=== PATIENT | male | born 1945 | race Caucasian/White ===

== ENCOUNTER → 2017-01-07 | Outpatient (CLI) | payer BC ==
[~2017-01-07] MED LIST: ASPI81TA28 PO; ENOX30IN SQ; IBUP-1277 PO; LACTTAB7 PO; LORA1TAB13 PO; OXYC1TAB3 PO; PSYLPOW38 PO; WARF5TAB90 PO; [UNRECOGNIZED DRUG - OTHER] PO
--- NOTE | 2017-01-07 09:09 | DIAGNOSTIC IMAGING REPORT ---
RIGHT WRIST 4 VIEWS HISTORY: RIGHT WRIST PAIN Right COMPARISON: None. FINDINGS: No acute fracture or dislocation. Mild vascular calcifications. 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 Mild diffuse soft tissue swelling. Small dorsal well-corticated ossific density consistent with an old triquetral fracture. IMPRESSION: 1. No acute fracture or dislocation. 2. Mild soft tissue swelling. 3. 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 Electronically signed by: Saul García M.D. 01/07/2017 9:08 AM Dictated Date/Time: 01/07/2017 9:06 AM
== END | disposition home or self-care (01) ==
LOC: C.RAD1850 08:54
PROVIDERS: ATTEND Family Medicine
DX: M25.531 Pain in right wrist (principal); M77.11 Lateral epicondylitis, right elbow; R53.83 Other fatigue; M19.031 Primary osteoarthritis, right wrist

== ENCOUNTER → 2017-03-11 | Outpatient (CLI) | payer BC ==
[2017-03-11 17:59] LABS: BASO % 0.2 %; BASO ABS # 0.01 K/uL (0-0.2); COMPLETE YES; EOS % 3.1 %; HEMATOCRIT 50.1 % (42-52); IG% 0.2 %; LYMPH ABS # 1.99 K/uL (1.2-3.4); MEAN CELL VOLUME 91.8 fL (80-100); MEAN CORPUSCULAR HEMOGLOBIN 29.5 pg (25-34); MEAN CORPUSCULAR HGB CONC 32.1 g/dl (32-36); MEAN PLATELET VOLUME 11.5 fL (7.4-10.4); MONO % 9.9 %; NEUT % 48.6 %; PLATELET COUNT 255 K/uL (130-400); RED BLOOD COUNT 5.46 M/uL (4.7-6.1); WHITE BLOOD COUNT 5.24 K/uL (4.8-10.8)
[2017-03-11 18:07] LABS: URINE APPEARANCE CLEAR (CLEAR); URINE BILIRUBIN NEG (NEG); URINE COLOR YELLOW; URINE NITRITE NEG (NEG); URINE SPECIFIC GRAVITY 1.021 (1.000-1.030); UROBILINOGEN NEG (NEG)
[2017-03-11 18:09] LABS: MANUAL MICROSCOPIC REQUIRED? NO; REVIEW REQ? NO
[2017-03-11 18:25] LABS: ALT/SGPT 27 U/L (12-78); AST/SGOT 21 U/L (15-37); BLOOD UREA NITROGEN 15 mg/dl (7-18); BUN/CREATININE RATIO 15.4 (10-20); CARBON DIOXIDE 27 mmol/L (21-32); CHLORIDE 106 mmol/L (98-107); CHOLESTEROL 224 mg/dl (0-200); GLUCOSE 80 mg/dl (70-99); POTASSIUM 4.8 mmol/L (3.5-5.1); SODIUM 142 mmol/L (136-145)
[2017-03-11 18:30] LABS: ALB/GLOB RATIO 1.1 (0.9-2); ALKALINE PHOSPHATASE 55 U/L (45-117); CHOLESTEROL/HDL RATIO 2.9; HDL CHOLESTEROL 78 mg/dl; LDL CHOLESTEROL CALCULATED 128 mg/dl; TRIGLYCERIDES 92 mg/dl (0-150); VERY LOW DENSITY LIPOPROT CALC 18 mg/dl
--- NOTE | 2017-03-12 13:25 | CODING QUERY NO DIAGNOSIS ---
TREATMENT RENDERED WITHOUT A DIAGNOSIS To promote full compliance with coding requirements relating to patient care, physician participation is requested in all cases of surgical coder uncertainty. Please assist us with providing a diagnosis/symptom for the test(s) below: A diagnosis/symptom was not documented on your Order. A valid diagnosis/symptom is required to bill all insurances. Please remember that we are unable to code a diagnosis of rule out, probable, possible, questionable, or suspected. Tests that require a diagnosis: DOS 03/11 * CBC DIAGNOSIS: * CMP DIAGNOSIS: * PSA DIAGNOSIS: Provider Signature: Date: Thank you Basilia Sainz Health Information Management Once completed, please kindly fax back to [phone] For questions please call [phone]
== END | disposition home or self-care (01) ==
LOC: C.LABSPEC 17:08
PROVIDERS: ATTEND Nurse Practitioner Family
DX: Z01.89 Encounter for other specified special examinations (principal)

== ENCOUNTER → 2017-03-19 | Outpatient (CLI) | payer BC ==
--- NOTE | 2017-03-19 14:26 | ECHOCARDIOGRAM REPORT ---
*NOTICE TO RECEIVING DEMOCRAT AGENCY This information is strictly Confidential and protected under [place] law. [place] law prohibits you from making any further disclosure of this information unless further disclosure is expressly permitted by the written consent of the person to whom it pertains or is authorized by law. A general authorization for the release of medical or other information is not sufficient for this purpose. Hospital accepts no responsibility if the information is made available to any other person, INCLUDING THE PATIENT. Interpretation Summary * Conclusions -- * 1. Normal left ventricular size and systolic function. EF 55-60%. No regional wall motion abnormalities. No left ventricular hypertrophy. * 2. Mild mitral regurgitation. * 3. Normal estimated right ventricular systolic pressure; RVSP 29 mmHg. * 4. Compared to prior study on 07/30/2013, atrial fibrillation has replaced sinus rhythm. Procedure Details * A complete two-dimensional transthoracic echocardiogram was performed (2D, M-mode, Doppler and color flow Doppler). Left Ventricle * The left ventricle is normal in size. * There is normal left ventricular wall thickness. * Ejection Fraction = 55-60%. * Left ventricular systolic function is normal. * The left ventricular wall motion is normal. Right Ventricle * The right ventricle is normal in size and function. * The right ventricular systolic function is normal as assessed by tricuspid annular plane systolic excursion (TAPSE) (normal >1.5 cm). Atria * The left atrial size is normal. * Right atrial size is normal. * There is no evidence of atrial septal defect, but resolution does not allow assessment for a patent foramen ovale. Mitral Valve * The mitral valve leaflets appear normal. There is no evidence of stenosis, fluttering, or prolapse. * There is mild mitral regurgitation. Tricuspid Valve * The tricuspid valve is not well visualized, but is grossly normal. * There is no tricuspid stenosis. * There is trace tricuspid regurgitation. Aortic Valve * The aortic valve is normal in structure and function. * The aortic valve is trileaflet. * No hemodynamically significant valvular aortic stenosis. * No aortic regurgitation is present. Pulmonic Valve * The pulmonary valve is inadequately visualized, but the Doppler data is adequate for interpretation. * There is no pulmonic valvular stenosis. * There is no significant pulmonary regurgitation. Great Vessels * The aortic root is normal size. Pericardium/Pleural * There is no pericardial effusion. Great Vessels * Normal inferior vena cava size and collapsability with sniff indicates a normal right atrial pressure of 3 mmHg MMode 2D Measurements and Calculations IVSd 1.1 cm IVSs 1.6 cm LVIDd 4.3 cm LVIDs 2.8 cm LVPWd 0.87 cm LVPWs 1.4 cm IVS/LVPW 1.3 FS 33.0 % EDV(Teich) 80.9 ml ESV(Teich) 30.8 ml EF(Teich) 61.9 % EDV(cubed) 76.8 ml ESV(cubed) 23.1 ml EF(cubed) 69.9 % % IVS thick 44.6 % % LVPW thick 57.5 % LV mass(C)d 139.9 grams LV mass(C)dI 84.4 grams/m\S\2 LV mass(C)s 148.2 grams LV mass(C)sI 89.4 grams/m\S\2 SV(Teich) 50.0 ml SI(Teich) 30.2 ml/m\S\2 SV(cubed) 53.7 ml SI(cubed) 32.4 ml/m\S\2 Ao root diam 3.1 cm Ao root area 7.7 cm\S\2 LA dimension 3.9 cm LA/Ao 1.2 LVAd ap4 30.0 cm\S\2 LVLd ap4 7.2 cm EDV(MOD-sp4) 101.3 ml EDV(sp4-el) 106.5 ml LVAs ap4 18.7 cm\S\2 LVLs ap4 6.3 cm ESV(MOD-sp4) 47.5 ml ESV(sp4-el) 47.2 ml EF(MOD-sp4) 53.1 % EF(sp4-el) 55.7 % SV(MOD-sp4) 53.8 ml SI(MOD-sp4) 32.5 ml/m\S\2 SV(sp4-el) 59.3 ml SI(sp4-el) 35.8 ml/m\S\2 Doppler Measurements and Calculations MV E max dana 112.4 cm/sec MV dec time 0.17 sec Ao V2 max 138.5 cm/sec Ao max PG 7.7 mmHg Ao max PG (full) 5.0 mmHg LV V1 max PG 2.7 mmHg LV V1 max 81.7 cm/sec TV E max dana 60.9 cm/sec TR max dana 253.3 cm/sec RVSP(TR) 28.7 mmHg RAP systole 3.0 mmHg
== END | disposition home or self-care (01) ==
LOC: C.CPL 12:51
PROVIDERS: ATTEND Family Medicine
DX: I48.91 Unspecified atrial fibrillation (principal)

== ENCOUNTER 2017-07-02 23:00 | Emergency (ER) | payer BC ==
[~2017-07-02] VITALS: Ht 167.6 cm; Wt 58.0 kg
[~2017-07-02 23:00] MED LIST changes: -WARF5TAB90 PO
[2017-07-02 23:03] VITALS: TEMP 36.4; Ht 167.6 cm; Wt 58.0 kg
[2017-07-02] MEDS ORDERED: SODIUM CHLORIDE 0.9% 1000ML 1,000 ML IV STA (23:25)
[2017-07-02] MEDS ORDERED: METOPROLOL TARTRATE 1 MG/ML VIAL IV STA (23:25)
--- NOTE | 2017-07-02 23:28 | EMERGENCY ROOM VISIT NOTE ---
History Report prepared by Juarez: Kaiden Rosas Under the Supervision of: Dr. Glenn Smith M.D. First contact with patient: 23:13 Chief Complaint: SYNCOPE (NEAR SYNCOPE) Stated Complaint: NEAR SYNCOPE Nursing Triage Summary: Pt was coming from bathroom and started to feel dizzy. Pt said he slumped over in the chair. Per patient was unresponsive for a couple of seconds. Pt remembers being diaphoretic. History of Present Illness The patient is a 71 year old male who presents to the Emergency Room with complaints of a resolved syncopal episode that occurred prior to arrival. The patient states that he went to get up from the couch and felt dizzy. He states that he went to the bathroom to urinate and the dizziness worsened. The patient states that he went downstairs and sat in the chair and experienced a syncopal episode. The patient is accompanied by his who states that she found him slumping in his chair and staring. She states that he was unresponsive for 2-3 minutes, staring, and experiencing diaphoresis. The patient states that he does not remember the incident. He admits that he was experiencing diaphoresis and shakiness until the ambulance arrived. The patient states that he feels better after the incident. He admits that he has experienced this in the past due to his history of atrial fibrillation. The patient states that he follows up with Dr. Cueto, his PCP, for his Atrial fibrillation. He states that he needed to be cleared for hip surgery in March. The patient states that he "must have come out of Atrial fibrillation since I had hip surgery". He admits that he he took Lovenox for a month after his surgery. The patient states that he currently takes baby aspirin every day. He denies fever, nausea, vomiting, abdominal pain , chest pain, and SOB. Source of History: patient, spouse/significant other Onset: prior to arrival Position: other (global) Quality: other (unresponsive) Timing: resolved Associated Symptoms: No fevers, No chest pain, No SOB, No nausea, No vomiting, No abdominal pain Review of Systems See HPI for pertinent positives & negatives. A total of 10 systems reviewed and were otherwise negative. Past Medical & Surgical Medical Problems: (1) Deviated nasal septum (2) Dislocation of shoulder joint Family History Patient reports no known family medical history. Social History Smoking Status: Never Smoker Alcohol Use: occasionally Marital Status: Housing Status: lives with significant other Occupation Status: employed Current/Historical Medications Scheduled Aspirin (Aspirin Ec), 81 MG PO DAILY Lactobacillus (Acidophilus), 1 TAB PO DAILY Psyllium Husk (Bulk) (Psyllium Husk), 1 CAPSULE PO DAILY Warfarin Sodium (Coumadin), 5 MG PO 4XWK Warfarin Sodium (Coumadin), 7.5 MG PO 3XWK Allergies Coded Allergies: No Known Allergies (Verified , 07/02/17) Physical Exam Vital Signs Date Time Temp Pulse Resp B/P (MAP) Pulse Ox O2 Delivery O2 Flow Rate FiO2 07/03/17 00:38 90 16 127/86 99 07/03/17 00:04 127/84 07/03/17 00:00 93 16 131/94 96 Room Air 07/02/17 23:55 122/87 07/02/17 23:45 100 20 97 Room Air 07/02/17 23:42 117 123/87 07/02/17 23:40 123/87 07/02/17 23:30 116 16 97 07/02/17 23:25 Room Air 07/02/17 23:15 100 16 97 07/02/17 23:09 130 07/02/17 23:07 150/84 07/02/17 23:05 110 18 139/92 96 Room Air 126 153/112 111 150/84 07/02/17 23:03 36.4 105 18 150/84 96 Room Air Physical Exam GENERAL: Patient is a healthy-appearing well-nourished 71 year old male. HEAD: Normocephalic atraumatic EYES: Ocular movements intact pupils equal and react to light OROPHARYNX mucous membranes are moist no exudates present no erythema or edema present NECK: Supple no nuchal rigidity CHEST: Good equal expansion LUNGS: Clear and equal to auscultation CARDIAC: Normal S1 and S2 ABDOMEN: Soft nontender no guarding BACK: No CVA tenderness EXTREMITIES: No pain upon palpation normal muscle strength in all groups no clubbing cyanosis or edema NEURO: Patient is following commands and answering questions appropriately. Alert and oriented x3 Cranial Nerves 2-12 grossly intact Medical Decision & Procedures ER Provider Diagnostic Interpretation: X-ray results as stated below per interpretation by me: CHEST X-RAY: Shows no congestive pneumonia or pneumothorax. Laboratory Results 07/02/17 22:47 Red Blood Count 5.16, Mean Corpuscular Volume 89.3, Mean Corpuscular Hemoglobin 30.0, Mean Corpuscular Hemoglobin Concent 33.6, Mean Platelet Volume 11.0, Neutrophils (%) (Auto) 42.0, Lymphocytes (%) (Auto) 42.5, Monocytes (%) (Auto) 11.6, Eosinophils (%) (Auto) 3.4, Basophils (%) (Auto) 0.3, Neutrophils # (Auto ) 2.69, Lymphocytes # (Auto) 2.72, Monocytes # (Auto) 0.74, Eosinophils # (Auto ) 0.22, Basophils # (Auto) 0.02 07/02/17 22:47 Test 07/02/17 22:47 White Blood Count 6.40 K/uL (4.8-10.8) Red Blood Count 5.16 M/uL (4.7-6.1) Hemoglobin 15.5 g/dL (14.0-18.0) Hematocrit 46.1 % (42-52) Mean Corpuscular Volume 89.3 fL (80-100) Mean Corpuscular Hemoglobin 30.0 pg (25-34) Mean Corpuscular Hemoglobin Concent 33.6 g/dl (32-36) Platelet Count 231 K/uL (130-400) Mean Platelet Volume 11.0 fL (7.4-10.4) Neutrophils (%) (Auto) 42.0 % Lymphocytes (%) (Auto) 42.5 % Monocytes (%) (Auto) 11.6 % Eosinophils (%) (Auto) 3.4 % Basophils (%) (Auto) 0.3 % Neutrophils # (Auto) 2.69 K/uL (1.4-6.5) Lymphocytes # (Auto) 2.72 K/uL (1.2-3.4) Monocytes # (Auto) 0.74 K/uL (0.11-0.59) Eosinophils # (Auto) 0.22 K/uL (0-0.5) Basophils # (Auto) 0.02 K/uL (0-0.2) RDW Standard Deviation 42.2 fL (36.4-46.3) RDW Coefficient of Variation 12.9 % (11.5-14.5) Immature Granulocyte % (Auto) 0.2 % Immature Granulocyte # (Auto) 0.01 K/uL (0.00-0.02) Prothrombin Time 27.2 SECONDS (9.0-12.0) Prothromb Time International Ratio 2.4 (0.9-1.1) Anion Gap 8.0 mmol/L (3-11) Est Creatinine Clear Calc Drug Dose 55.6 ml/min Estimated GFR () 87.4 Estimated GFR (Non- 75.4 BUN/Creatinine Ratio 17.9 (10-20) Calcium Level 8.7 mg/dl (8.5-10.1) Total Bilirubin 0.3 mg/dl (0.2-1) Direct Bilirubin < 0.1 mg/dl (0-0.2) Aspartate Amino Transf (AST/SGOT) 20 U/L (15-37) Alanine Aminotransferase (ALT/SGPT) 26 U/L (12-78) Alkaline Phosphatase 57 U/L (45-117) Total Creatine Kinase 147 U/L (39-308) Creatine Kinase MB 1.1 ng/ml (0.5-3.6) Creatine Kinase MB Ratio 0.7 (0-3.0) Troponin I < 0.015 ng/ml (0-0.045) Total Protein 7.9 gm/dl (6.4-8.2) Albumin 3.8 gm/dl (3.4-5.0) Lipase 155 U/L (73-393) Labs reviewed by ED physician. Medications Administered Medications (Trade) Dose Ordered Sig/Eve Route Start Time Stop Time Status Last Admin Dose Admin Metoprolol Tartrate (Lopressor Iv) 15 mg NOW STAT IV 07/02/17 23:25 07/02/17 23:27 DC 07/02/17 23:42 15 MG Sodium Chloride 1,000 ml @ 999 mls/hr Q1H1M STAT IV 07/02/17 23:25 07/03/17 00:25 DC 07/02/17 23:42 999 MLS/HR ECG Indication: syncope Rate (beats per minute): 106 Rhythm: atrial fibrillation Findings: no acute ischemic change, other (RVR) ED Course 2314: Past medical records reviewed. The patient was evaluated in room B07. A complete history and physical examination was performed. 2325: Ordered Sodium Chloride 1000 ml @ 999 mls/hr IV, Lopressor IV 15 mg IV. Medical Decision The differential diagnosis includes etiologies such as cardiac ischemia, aortic dissection, pulmonary embolism, pneumonia, pneumothorax, musculoskeletal, infections, pericarditis, myocarditis, esophageal rupture, gastrointestinal, as well as others were entertained. This is a 71-year-old male who presents emergency department after vasovagal episode after micturating. Upon arrival to emergency department the patient has no complaints and is essentially feeling better. The patient is on Coumadin for atrial fibrillation. I suspect that the patient is normally in atrial fibrillation as he had an echo performed in March when he was in atrial fibrillation. The patient has normal CBC normal renal profile normal liver profile. He was given a normal bit bolus of fluid in the emergency department. the patient was given Lopressor here in the emergency department. As he is rate controlled I feel he is well enough to be discharged home for follow-up with Dr. Carson's office. Patient was in agreement with treatment plan. Medication Reconcilliation Current Medication List: was personally reviewed by me Blood Pressure Screening Patient's blood pressure: Elevated blood pressure Blood pressure disposition: Elevated BP felt to be situational Impression Primary Impression: Vasovagal syncope Scribe Attestation The scribe's documentation has been prepared under my direction and personally reviewed by me in its entirety. I confirm that the note above accurately reflects all work, treatment, procedures, and medical decision making performed by me. Departure Information Dispostion Home / Self-Care Referrals Rashel Cueto M.D. (PCP) Patient Instructions My [facility]
[2017-07-02 23:43] LABS: ALT/SGPT 26 U/L (12-78); AST/SGOT 20 U/L (15-37); BLOOD UREA NITROGEN 18 mg/dl (7-18); BUN/CREATININE RATIO 17.9 (10-20); CALCIUM 8.7 mg/dl (8.5-10.1); CARBON DIOXIDE 28 mmol/L (21-32); CHLORIDE 106 mmol/L (98-107); GLUCOSE 79 mg/dl (70-99); POTASSIUM 3.8 mmol/L (3.5-5.1); SODIUM 142 mmol/L (136-145)
[2017-07-02 23:44] LABS: BASO % 0.3 %; BASO ABS # 0.02 K/uL (0-0.2); COMPLETE YES; EOS % 3.4 %; HEMATOCRIT 46.1 % (42-52); IG% 0.2 %; LYMPH % 42.5 %; LYMPH ABS # 2.72 K/uL (1.2-3.4); MEAN CELL VOLUME 89.3 fL (80-100); MEAN CORPUSCULAR HGB CONC 33.6 g/dl (32-36); MONO % 11.6 %; PLATELET COUNT 231 K/uL (130-400); RED BLOOD COUNT 5.16 M/uL (4.7-6.1)
[2017-07-02 23:45] LABS: INR 2.4 (0.9-1.1); PROTHROMBIN TIME (PATIENT) 27.2 SECONDS (9.0-12.0)
[2017-07-02 23:48] LABS: ALKALINE PHOSPHATASE 57 U/L (45-117); CKMB/CK RATIO 0.7 (0-3.0)
[2017-07-02] MEDS ORDERED: WARF5TAB90 PO ×2 (23:57)
[2017-07-03 00:38] VITALS: BP 127/86; PULSE 90; O2SAT 99
--- NOTE | 2017-07-03 07:05 | DIAGNOSTIC IMAGING REPORT ---
CHEST ONE VIEW PORTABLE CLINICAL HISTORY: CHEST PAIN dyspnea COMPARISON STUDY: 07/29/2013 FINDINGS: The bones soft tissues and hemidiaphragms are normal. The cardiomediastinal silhouette is normal. The lungs are clear. The pulmonary vasculature is normal. IMPRESSION: Negative chest. The above report was generated using voice recognition software. It may contain grammatical, syntax or spelling errors. Electronically signed by: Nilesh Lacy M.D. 07/03/2017 7:03 AM Dictated Date/Time: 07/03/2017 7:00 AM
== END 2017-07-03 00:39 | disposition home or self-care (01) ==
LOC: EDBD 23:00 → C.EDB 23:03
DX: R55 Syncope and collapse (principal); I48.91 Unspecified atrial fibrillation; Z79.01 Long term (current) use of anticoagulants; Z87.828 Personal history of other (healed) physical injury and trauma; Z79.82 Long term (current) use of aspirin; Z79.899 Other long term (current) drug therapy

== ENCOUNTER 2020-05-17 12:50 | Observation (INO) ==
[2020-05-17] MEDS ORDERED: SODIUM CHLORIDE 0.9% 1000ML 1,000 ML IV ONE ×2 (13:14→14:38)
--- NOTE | 2020-05-17 13:19 | Emergency Department Note ---
Impression & Plan Acute appendicitis, Abdominal pain, Fever, Atrial fibrillation with rapid ventricular response ED Provider Note NAME: BRITTANY CONNELL AGE: 74 SEX: M : 1945 ARRIVES VIA: Walk-In INFORMANT: Patient, ED PROVIDER(S): Rashel Schilling DO CHIEF COMPLAINT: Fever HPI: The patient is a 74-year-old male who presented to the emergency department for an evaluation of fever and altered mental status. Apparently the patient has been experiencing confusion all morning. He also noticed an elevated temperature. The patient also complains of left-sided abdominal pain. He denies having any diarrhea. He has had no nausea or vomiting. He has had no chest pain. He has noticed that his heart rate has been increasing and has a history of atrial fibrillation. He denies having any lower extremity swelling or rash. The patient has not been seen by her primary care physician for the symptoms. ROS: See above HPI for pertinent positives & negatives. A total of 10 systems reviewed and were otherwise negative. PAST MEDICAL HISTORY: See Below PAST SURGICAL HISTORY: See Below FAMILY HISTORY: See Below SOCIAL HISTORY: See Below HOME MEDICATIONS: See Below ALLERGIES: See Below VITALS: See Below PHYSICAL EXAMINATION: GENERAL: Patient is awake alert in no acute distress patient is resting comfortably and showing no signs of anxiety EYES: The conjunctivae are clear. The pupils are round and reactive. EARS, NOSE, MOUTH AND THROAT: The nose is without any evidence of any deformity. Mucous members are dry. NECK: The neck is nontender and supple. RESPIRATORY: Normal respiratory effort is noted there is no evidence of wheezing rhonchi or rales CARDIOVASCULAR: Tachycardic and irregular rhythm was noted to auscultation. There was no definite murmur. GASTROINTESTINAL: The abdomen is mildly distended but soft. There is significant tenderness to palpation in the left lower quadrant. MUSCULOSKELETAL/EXTREMITIES: There is no evidence of gross deformity full range of motion is noted in the hips and shoulders. SKIN: There is no obvious evidence of any rash. Skin was warm and dry. There is pedal edema bilaterally. NEUROLOGIC: Patient is awake and oriented to person place and situation. Strength was symmetric. MEDICAL DECISION MAKING: The patient is a 74-year-old male who presented to the emergency department for an evaluation of abdominal pain and fever. The patient's history and physical exam initially I thought was consistent with acute diverticulitis. The patient was treated with IV fluids in the emergency department. He was reevaluated multiple times. I discussed the patient's laboratory and radiographic studies with him. CT appears to be consistent with acute appendicitis. For this reason I discussed his case with the on-call general surgical group. They will evaluate the patient in the emergency department for further management and disposition. After the patient was evaluated by the general surgeon he was felt to be a good candidate for medical admission given his rapid atrial fibrillation and other comorbidities. The patient also recently took blood thinners this morning for his A. fib. Triage Nursing notes reviewed. Prior medical records reviewed Vital Signs: reviewed and remarkable for fever and tachycardia. Differential diagnosis: Etiologies such as appendicitis, diverticulitis, obstruction, inflammatory bowel disease, renal colic, PUD, biliary pathology, pancreatitis, mesenteric ischemia, aortic pathology, infections, genitourinary, UTI, perforated viscus, as well as others were entertained. ER treatment provided: See below Diagnostics interpreted by me: ECG: EKG was obtained in the emergency department. My interpretation is atrial fibrillation with rapid ventricular response at 164 bpm. There were no PVCs. Diffuse ST depressions were noted. This was compared to a tracing from July 02, 2017. There is an increase in the heart rate as well as ST segment depressions which appear new compared to the previous tracing. Cardiac Monitoring: An order was placed for continuous cardiac monitoring. The monitor shows a rate of 110 with atrial fibrillation rhythm. Laboratory studies: As stated above and show below. Imaging studies: See below Consultation(s): 1445: I discussed this case with Ольга who is oxidation engineer for general surgery. They will evaluate the patient in the emergency department. ED COURSE: Procedures: none Critical Care: None Past Med/Surg History Medical History Deviated nasal septum (Resolved 06/29/13) Dislocation of shoulder joint (Resolved 06/29/13) Hypercholesterolemia Hypertension PAF (paroxysmal atrial fibrillation) Social History Smoking Status: Never smoker Allergies Allergies Allergy/AdvReac Type Severity Reaction Status Date / Time pollen extracts Allergy Mild SNEEZING, Verified 05/17/20 15:17 CONGESTION Home Meds Home Medications Medication Instructions Recorded Confirmed aspirin 81 mg tablet,delayed 81 mg PO QAM 07/25/19 05/17/20 release naproxen 500 mg tablet 500 mg PO QAM tab 02/27/20 05/17/20 Lactobacillus acidophilus 0 mg PO DAILY 05/17/20 05/17/20 metoprolol succinate 12.5 mg PO QAM 05/17/20 05/17/20 psyllium husk 6 g PO QAM 05/17/20 05/17/20 rivaroxaban [Xarelto] 20 mg PO QAM 05/17/20 05/17/20 Results & Data (ED) Vital Signs Vital Signs - 24 hr 05/17/20 12:56 05/17/20 13:11 05/17/20 13:15 Temperature 37.9 C H Temperature Source Oral Pulse Rate 143 H 160 H 194 H Pulse Rate [Apical] Pulse Rate from SpO2 Sensor 147 H 184 H Respiratory Rate 20 22 22 Respiratory Effort / Characteristics Non-Labored Spontaneous Respiratory Depth Normal Blood Pressure 100/60 114/68 Blood Pressure [Left Arm] Blood Pressure Mean 73 72 Blood Pressure Mean [Left Arm] Pulse Oximetry 94 92 95 Oxygen Delivery Method Sepsis Recent Fever Within 48 Hours Yes Sepsis New/Unexplained Change in Mental Status Yes Sepsis Action Taken by Nursing No Action Required 05/17/20 13:21 05/17/20 13:30 05/17/20 13:31 Temperature Temperature Source Pulse Rate 157 H 138 H 147 H Pulse Rate [Apical] 174 H Pulse Rate from SpO2 Sensor 125 H 117 H 120 H Respiratory Rate 23 15 19 Respiratory Effort / Characteristics Respiratory Depth Blood Pressure 101/64 108/76 Blood Pressure [Left Arm] 101/64 Blood Pressure Mean 67 91 Blood Pressure Mean [Left Arm] 76 Pulse Oximetry 95 96 96 Oxygen Delivery Method Room Air Sepsis Recent Fever Within 48 Hours Sepsis New/Unexplained Change in Mental Status Sepsis Action Taken by Nursing 05/17/20 14:00 05/17/20 14:25 05/17/20 14:30 Temperature Temperature Source Pulse Rate 126 H 117 H 122 H Pulse Rate [Apical] Pulse Rate from SpO2 Sensor 126 H 111 H 125 H Respiratory Rate 23 23 24 Respiratory Effort / Characteristics Respiratory Depth Blood Pressure 111/72 110/79 Blood Pressure [Left Arm] Blood Pressure Mean 77 82 Blood Pressure Mean [Left Arm] Pulse Oximetry 95 96 95 Oxygen Delivery Method Sepsis Recent Fever Within 48 Hours Sepsis New/Unexplained Change in Mental Status Sepsis Action Taken by Nursing 05/17/20 14:31 05/17/20 14:45 05/17/20 15:10 Temperature 36.6 C Temperature Source Oral Pulse Rate 115 H 126 H Pulse Rate [Apical] 111 H Pulse Rate from SpO2 Sensor 120 H 124 H Respiratory Rate 22 23 18 Respiratory Effort / Characteristics Respiratory Depth Blood Pressure 130/82 Blood Pressure [Left Arm] 129/93 Blood Pressure Mean 102 Blood Pressure Mean [Left Arm] 105 Pulse Oximetry 94 94 97 Oxygen Delivery Method Room Air Sepsis Recent Fever Within 48 Hours Sepsis New/Unexplained Change in Mental Status Sepsis Action Taken by [facility] Medications Current Medication List: was personally reviewed by me Laboratory Data Result diagrams: 05/17/20 13:20 05/17/20 13:20 Lab Results 05/17/20 05/17/20 05/17/20 Range/Units 13:20 13:20 13:20 WBC 7.96 (4.8-10.8) K/uL RBC 5.13 (4.7-6.1) M/uL Hgb 15.9 (14.0-18.0) g/dL Hct 46.1 (42-52) % MCV 89.9 (80-100) fL MCH 31.0 (25-34) pg MCHC 34.5 (32-36) g/dL RDW Std Deviation 42.0 (36.4-46.3) fL RDW Coeff of Zeus 12.9 (11.5-14.5) % Plt Count 170 (130-400) K/uL MPV 11.3 H (7.4-10.4) fL Immature Gran % (Auto) 0.1 % Neut % (Auto) 91.6 % Lymph % (Auto) 7.3 % Barron % (Auto) 1.0 % Eos % (Auto) 0.0 % Baso % (Auto) 0.0 % Neut # (Auto) 7.29 H (1.4-6.5) K/uL Lymph # (Auto) 0.58 L (1.2-3.4) K/uL Barron # (Auto) 0.08 L (0.11-0.59) K/uL Eos # (Auto) 0.00 (0-0.5) K/uL Baso # (Auto) 0.00 (0-0.2) K/uL Immature Gran # (Auto) 0.01 (0.00-0.02) K/uL PT 15.2 H (9.0-12.0) Seconds INR 1.5 H (0.9-1.1) APTT 33.4 H (21.0-31.0) Seconds PTT Ratio 1.2 Sodium 138 (136-145) mmol/L Potassium 3.7 (3.5-5.1) mmol/L Chloride 107 (98-107) mmol/L Carbon Dioxide 23 (21-32) mmol/L Anion Gap 8.0 (3-11) BUN 16 (7-18) mg/dl Creatinine 1.12 (0.6-1.4) mg/dl Est Cr Clr Drug Dosing Not Reportable Est GFR ( Amer) 74.6 Est GFR (Non-Af Amer) 64.4 BUN/Creatinine Ratio 13.9 (10-20) Glucose 105 H (70-99) mg/dl Lactate (0.4-2.0) mmol/L Calcium 8.8 (8.5-10.1) mg/dl Magnesium 2.1 (1.8-2.4) mg/dl Total Bilirubin 1.5 H (0.2-1) mg/dl AST 14 L (15-37) U/L ALT 19 (12-78) U/L Alkaline Phosphatase 68 (45-117) U/L Troponin I < 0.015 (0-0.045) ng/ml Total Protein 8.1 (6.4-8.2) gm/dl Albumin 3.6 (3.4-5.0) gm/dl Globulin 4.5 H (2.5-4.0) gm/dl Albumin/Globulin Ratio 0.8 L (0.9-2) Procalcitonin (0-0.5) ng/ml Urine Color Urine Appearance (Clear) Urine pH (4.5-7.5) Ur Specific Edgard (1.000-1.030) Urine Protein (Negative) Urine Glucose (UA) (Negative) Urine Ketones (Negative) Urine Blood (Negative) Urine Nitrite (Negative) Urine Bilirubin (Negative) Urine Urobilinogen (Negative) Ur Leukocyte Esterase (Negative) 05/17/20 05/17/20 05/17/20 Range/Units 13:20 14:01 14:45 WBC (4.8-10.8) K/uL RBC (4.7-6.1) M/uL Hgb (14.0-18.0) g/dL Hct (42-52) % MCV (80-100) fL MCH (25-34) pg MCHC (32-36) g/dL RDW Std Deviation (36.4-46.3) fL RDW Coeff of Zeus (11.5-14.5) % Plt Count (130-400) K/uL MPV (7.4-10.4) fL Immature Gran % (Auto) % Neut % (Auto) % Lymph % (Auto) % Barron % (Auto) % Eos % (Auto) % Baso % (Auto) % Neut # (Auto) (1.4-6.5) K/uL Lymph # (Auto) (1.2-3.4) K/uL Barron # (Auto) (0.11-0.59) K/uL Eos # (Auto) (0-0.5) K/uL Baso # (Auto) (0-0.2) K/uL Immature Gran # (Auto) (0.00-0.02) K/uL PT (9.0-12.0) Seconds INR (0.9-1.1) APTT (21.0-31.0) Seconds PTT Ratio Sodium (136-145) mmol/L Potassium (3.5-5.1) mmol/L Chloride (98-107) mmol/L Carbon Dioxide (21-32) mmol/L Anion Gap (3-11) BUN (7-18) mg/dl Creatinine (0.6-1.4) mg/dl Est Cr Clr Drug Dosing Est GFR ( Amer) Est GFR (Non-Af Amer) BUN/Creatinine Ratio (10-20) Glucose (70-99) mg/dl Lactate 2.4 H* (0.4-2.0) mmol/L Calcium (8.5-10.1) mg/dl Magnesium (1.8-2.4) mg/dl Total Bilirubin (0.2-1) mg/dl AST (15-37) U/L ALT (12-78) U/L Alkaline Phosphatase (45-117) U/L Troponin I (0-0.045) ng/ml Total Protein (6.4-8.2) gm/dl Albumin (3.4-5.0) gm/dl Globulin (2.5-4.0) gm/dl Albumin/Globulin Ratio (0.9-2) Procalcitonin 0.34 (0-0.5) ng/ml Urine Color Yellow Urine Appearance Clear (Clear) Urine pH 7.0 (4.5-7.5) Ur Specific Edgard 1.018 (1.000-1.030) Urine Protein Negative (Negative) Urine Glucose (UA) Negative (Negative) Urine Ketones Negative (Negative) Urine Blood Negative (Negative) Urine Nitrite Negative (Negative) Urine Bilirubin Negative (Negative) Urine Urobilinogen Negative (Negative) Ur Leukocyte Esterase Negative (Negative) Administered Medications Discontinued Medications Sodium Chloride (Nss 1000ml) 1,000 mls @ 999 mls/hr IV .Q1H1M ONE Stop: 05/17/20 14:14 Last Infusion: 05/17/20 14:23 Dose: 0 mls/hr Documented by: [id number] Admin: 05/17/20 13:22 Dose: 999 mls/hr Documented by: [id number] Sodium Chloride (Nss 1000ml) 1,000 mls @ 999 mls/hr IV .Q1H1M ONE Stop: 05/17/20 15:38 Last Admin: 05/17/20 14:49 Dose: 999 mls/hr Documented by: [id number] Ioversol (Optiray 320 100ml) 94 ml IV ONCE ONE Stop: 05/17/20 14:10 Last Admin: 05/17/20 14:10 Dose: 94 ml Documented by: [id number] Imaging Data Radiologist's Impression: CT OF THE HEAD WITHOUT CONTRAST CLINICAL HISTORY: Altered mental status. COMPARISON STUDY: No previous studies for comparison. CT DOSE: 767.83 mGy.cm TECHNIQUE: Helical axial images of the head were obtained without IV contrast. Automated exposure control was utilized for the study. A dose lowering technique was utilized adhering to the principles of ALARA. FINDINGS: No acute intracranial hemorrhage, midline shift or mass effect is present. Ventricular system is unremarkable. The basilar cisterns are patent. There are no extra-axial collections. There are no findings to suggest acute dural sinus thrombosis or acute territorial infarct. White matter hypodensities favor small vessel disease. There are no significant calvarial abnormalities. Visualized portions of the sinuses and mastoid air cells are clear. IMPRESSION: 1. No acute intracranial findings. 2. White matter hypodensities which favor small vessel disease. ACT 112: Negative or not required by law. Electronically signed by: Nguyễn Stoner M.D. 05/17/2020 2:24 PM Dictated: 05/17/20 1421 Transcribed: 05/17/20 1421 XR chest 1V portable CLINICAL HISTORY: Sepsis. COMPARISON STUDY: Chest radiograph July 02, 2017. FINDINGS: Lung volumes are normal. There is no pneumothorax or pleural effusion. Cardiac size is normal. Mediastinal contours are normal. There is no evidence for pulmonary edema. Patient is mildly rotated. Minimal left basilar opacity favors atelectasis. IMPRESSION: No acute cardiopulmonary findings. ACT 112: Negative or not required by law. Electronically signed by: Nguyễn Stoner M.D. 05/17/2020 1:31 PM Dictated: 05/17/20 1330 Transcribed: 05/17/[address] abd pelvis IV con only CLINICAL HISTORY: fever and LLQ pain COMPARISON STUDY: None. TECHNIQUE: Patient was scanned in a dynamic helical fashion during intravenous administration of 94 cc of Optiray 320. A dose lowering technique was utilized adhering to the principles of ALARA. CT DOSE: 261.47 mGy.cm FINDINGS: Lower chest: There is pulmonary emphysema. There are dependent atelectatic ranjeet nges. There is mild right lower lobe bronchiectasis. Liver: The contrast-enhanced liver is normal in size, contour, and attenuation. There is no intrahepatic biliary ductal dilatation. The hepatic veins and portal veins are patent. Gallbladder: Unremarkable. Spleen: Normal in size and attenuation. Pancreas: Unremarkable. Adrenal glands: Unremarkable. 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 Bowel: There are no transition zones indicate bowel obstruction. There is extensive colonic diverticulosis. There are no acute peridiverticular inflammatory changes. There is a dilated fluid-filled appendix. There are periappendiceal inflammatory changes. The findings are indicative of acute appendicitis, and surgical consultation is recommended. Peritoneum: There is no intraperitoneal free air or abdominal ascites. Vasculature: The abdominal aorta is normal in course and caliber. Adenopathy: None. Pelvic viscera: There is mild prostatomegaly Skeletal structures: There are postsurgical changes of a total left hip ar throplasty. IMPRESSION: 1. CT findings indicative of acute appendicitis. Clinical correlation is advocated as the patient is reported to have left lower quadrant abdominal pain. Surgical consultation is recommended 2. Extensive colonic diverticulosis. No evidence of acute diverticulitis 3. Bilateral renal hypodensities which have a somewhat triangular configuration. While nonspecific this could represent the sequela of prior renal infarcts. ACT 112: Negative or not required by law. Electronically signed by: Lee Hughes M.D. 05/17/2020 2:29 PM Dictated: 05/17/20 1424 Transcribed: 05/17/20 142 Blood Pressure Blood Pressure Findings: Normal blood pressure Discharge Plan Visit Data Chief Complaint: Abdominal Pain Stated Complaint: FEVER NAUSEA SHAKING CONFUSION DR REF ED Provider: Rashel Schilling Discharge Problem: Acute appendicitis, Abdominal pain, Fever, Atrial fibrillation with rapid ventricular response Patient Disposition: Being Evaluated by Surgeon Condition: Good Forms Stand Alone Forms: [facility] X-Scan Imaging Prescriptions Prescriptions: No Action aspirin 81 mg tablet,delayed release (DR/EC) 81 mg PO QAM RF: 0 naproxen 500 mg tablet 500 mg PO QAM RF: 0 metoprolol succinate 25 mg tablet extended release 24 hr 12.5 mg PO QAM RF: 0 Xarelto 20 mg tablet 20 mg PO QAM RF: 0 Lactobacillus acidophilus Capsule 0 mg PO DAILY RF: 0 psyllium husk 6 gram Powder In Packet 6 g PO QAM RF: 0 Referrals Referrals: Rashel Cueto MD [Primary Care Provider] - Discharge Problem: Acute appendicitis Qualifiers: Acute appendicitis type: with localized peritonitis Appendicitis gangrene pre sence: without gangrene Appendicitis perforation presence: without perforation Appendicitis abscess presence: without abscess Qualified Code(s): K35.30 - Acute appendicitis with localized peritonitis, without perforation or gangrene Abdominal pain Qualifiers: Abdominal location: lower abdomen, unspecified Qualified Code(s): R10.30 - Lower abdominal pain, unspecified Fever Qualifiers: Fever type: unspecified Qualified Code(s): R50.9 - Fever, unspecified
--- NOTE | 2020-05-17 13:33 | XRay Report ---
XR chest 1V portable CLINICAL HISTORY: Sepsis. COMPARISON STUDY: Chest radiograph July 02, 2017. FINDINGS: Lung volumes are normal. There is no pneumothorax or pleural effusion. Cardiac size is norm al. Mediastinal contours are normal. There is no evidence for pulmonary edema. Patient is mildly rota haresh. Minimal left basilar opacity favors atelectasis. IMPRESSION: No acute cardiopulmonary findings. ACT 112: Negative or not required by law. Electronically signed by: Nguyễn Stoner M.D. 05/17/2020 1:31 PM
[2020-05-17 13:39] LABS: Hematocrit (blood only) 46.1 % (42-52); Hemoglobin 15.9 g/dL (14.0-18.0); Immature Granulocytes # (auto) 0.01 K/uL (0.00-0.02); Immature Granulocytes % (auto) 0.1 %; Lymphocytes # (auto) 0.58 K/uL (1.2-3.4); Lymphocytes % (auto) 7.3 %; Mean Corpuscular Hgb Conc 34.5 g/dL (32-36); Mean Corpuscular Volume 89.9 fL (80-100); Mean Platelet Volume 11.3 fL (7.4-10.4); Monocytes # (auto) 0.08 K/uL (0.11-0.59); Neutrophils # (auto) 7.29 K/uL (1.4-6.5); Neutrophils % (auto) 91.6 %; Platelet Count 170 K/uL (130-400); RDW Coefficient of Variation 12.9 % (11.5-14.5); Red Blood Count 5.13 M/uL (4.7-6.1); White Blood Count 7.96 K/uL (4.8-10.8)
[2020-05-17 13:50] LABS: INR 1.5 (0.9-1.1); Partial Thromboplastin Ratio 1.2; Partial Thromboplastin Time 33.4 Seconds (21.0-31.0); Prothrombin Time 15.2 Seconds (9.0-12.0)
[2020-05-17 13:55] LABS: Alanine Aminotransferase 19 U/L (12-78); Albumin Level 3.6 gm/dl (3.4-5.0); Aspartate Aminotransferase 14 U/L (15-37); BUN Creatinine Ratio 13.9 (10-20); Blood Urea Nitrogen 16 mg/dl (7-18); Calcium 8.8 mg/dl (8.5-10.1); Carbon Dioxide 23 mmol/L (21-32); Chloride 107 mmol/L (98-107); Est GFR (African American) 74.6; Est GFR (Non-African American) 64.4; Glucose 105 mg/dl (70-99); Magnesium 2.1 mg/dl (1.8-2.4); Potassium 3.7 mmol/L (3.5-5.1); Sodium 138 mmol/L (136-145)
[2020-05-17 14:00] LABS: Albumin Globulin Ratio 0.8 (0.9-2); Alkaline Phosphatase 68 U/L (45-117); Bilirubin,Total 1.5 mg/dl (0.2-1); Globulin 4.5 gm/dl (2.5-4.0); Total Protein 8.1 gm/dl (6.4-8.2); Troponin I < 0.015 ng/ml (0-0.045)
[2020-05-17] MEDS ORDERED: IOVERSOL 100ml IV ONE (14:09)
--- NOTE | 2020-05-17 14:26 | CT Scan Report ---
CT OF THE HEAD WITHOUT CONTRAST CLINICAL HISTORY: Altered mental status. COMPARISON STUDY: No previous studies for comparison. CT DOSE: 767.83 mGy.cm TECHNIQUE: Helical axial images of the head were obtained without IV contrast. Automated exposure con trol was utilized for the study. A dose lowering technique was utilized adhering to the principles o f ALARA. FINDINGS: No acute intracranial hemorrhage, midline shift or mass effect is present. Ventricular syst em is unremarkable. The basilar cisterns are patent. There are no extra-axial collections. There are no findings to suggest acute dural sinus thrombosis or acute territorial infarct. White matter hypode nsities favor small vessel disease. There are no significant calvarial abnormalities. Visualized port ions of the sinuses and mastoid air cells are clear. IMPRESSION: 1. No acute intracranial findings. 2. White matter hypodensities which favor small vessel disease. ACT 112: Negative or not required by law. Electronically signed by: Nguyễn Stoner M.D. 05/17/2020 2:24 PM
--- NOTE | 2020-05-17 14:30 | CT Scan Report ---
CT abd pelvis IV con only CLINICAL HISTORY: fever and LLQ pain COMPARISON STUDY: None. TECHNIQUE: Patient was scanned in a dynamic helical fashion during intravenous administration of 94 c c of Optiray 320. A dose lowering technique was utilized adhering to the principles of ALARA. CT DOSE: 261.47 mGy.cm FINDINGS: Lower chest: There is pulmonary emphysema. There are dependent atelectatic changes. There is mild rig ht lower lobe bronchiectasis. Liver: The contrast-enhanced liver is normal in size, contour, and attenuation. There is no intrahepa tic biliary ductal dilatation. The hepatic veins and portal veins are patent. Gallbladder: Unremarkable. Spleen: Normal in size and attenuation. Pancreas: Unremarkable. Adrenal glands: Unremarkable. 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 Bowel: There are no transition zones indicate bowel obstruction. There is extensive colonic diverticu losis. There are no acute peridiverticular inflammatory changes. There is a dilated fluid-filled appe ndix. There are periappendiceal inflammatory changes. The findings are indicative of acute appendicit is, and surgical consultation is recommended. Peritoneum: There is no intraperitoneal free air or abdominal ascites. Vasculature: The abdominal aorta is normal in course and caliber. Adenopathy: None. Pelvic viscera: There is mild prostatomegaly Skeletal structures: There are postsurgical changes of a total left hip arthroplasty. IMPRESSION: 1. CT findings indicative of acute appendicitis. Clinical correlation is advocated as the patient is reported to have left lower quadrant abdominal pain. Surgical consultation is recommended 2. Extensive colonic diverticulosis. No evidence of acute diverticulitis 3. Bilateral renal hypodensities which have a somewhat triangular configuration. While nonspecific th is could represent the sequela of prior renal infarcts. ACT 112: Negative or not required by law. Electronically signed by: Lee Hughes M.D. 05/17/2020 2:29 PM
[2020-05-17 14:56] LABS: Appearance Urine Clear (Clear); Bilirubin Urine Negative (Negative); Blood Urine Negative (Negative); Color Urine Yellow; Glucose Urine UA Negative (Negative); Ketones Urine Negative (Negative); Leukocyte Esterase Urine Negative (Negative); Nitrite Urine Negative (Negative); Protein Urine Negative (Negative); Specific Gravity Urine 1.018 (1.000-1.030); Urobilinogen Urine Negative (Negative)
--- NOTE | 2020-05-17 15:18 | History & Physical Report ---
Date of Service May 17, 2020 Assessment & Plan (1) Acute appendicitis: History of Present Illness Primary Care Provider: Rashel Cueto MD This is a 74y M with a PMH of afib on xarelto who presents to the [facility] ED on 05/17/20 with complaints of fevers and abdominal pain. Patient reports that he started feeling fatigued yesterday evening around 5pm and he developed bilateral lower abdominal pain. He did not sleep well through the night due to the pain. He states he has a high pain toleraanceHe tried drinking some water last night which he vomited, saying it was bilious in appearance. This morning his pain slightly improved and he was able to eat a small piece of banana, applesauce, and drink some gatorade without vomiting. He reports though that he didn't have much of an appetite. He said all the fluids he drank went right through him, and he found it abnormal that he did not have a BM this AM as he takes psyllium and is usually pretty regular. Around 11a patient reported getting the chills and shakes which prompted him to come to the ED for further evaluation. In the ED patient was found to have a temperature of 37.9C and was in rapid afib. CT a/p was obtained that showed concern for acute appendicitis. Patient states at home he had a low grade temp. of 99F and felt sweaty. He said he has a high Allergies Allergy/AdvReac Type Severity Reaction Status Date / Time pollen extracts Allergy Mild SNEEZING, Verified 05/17/20 15:17 CONGESTION Home Medications Home Medications Medication Instructions Recorded Confirmed Type aspirin 81 mg tablet,delayed 81 mg PO DAILY 07/25/19 02/27/20 History release naproxen 500 mg tablet 500 mg PO DAILY tab 02/27/20 02/27/20 History Lactobacillus acidophilus 0 mg PO DAILY 05/17/20 05/17/20 History metoprolol succinate 12.5 mg PO QAM 05/17/20 05/17/20 History psyllium husk 6 g PO QAM 05/17/20 05/17/20 History rivaroxaban [Xarelto] 20 mg PO QAM 05/17/20 05/17/20 History Past Med/Surg History Medical History Deviated nasal septum (Resolved 06/29/13) Dislocation of shoulder joint (Resolved 06/29/13) Hypercholesterolemia Hypertension PAF (paroxysmal atrial fibrillation) Social History Smoking Status: Never smoker Results & Data Results & Data ([facility]) Vital Signs (Past 12 Hours) Vital Signs Temp Pulse Pulse Resp BP BP Pulse Ox 05/17/20 14:45 126 H 23 130/82 94 05/17/20 14:31 115 H 22 94 05/17/20 14:30 122 H 24 110/79 95 05/17/20 14:25 117 H 23 111/72 96 05/17/20 14:00 126 H 23 95 05/17/20 13:31 147 H 19 96 05/17/20 13:30 138 H 15 108/76 96 05/17/20 13:21 157 H 174 H 23 101/64 101/64 95 05/17/20 13:15 194 H 22 95 05/17/20 13:11 160 H 22 114/68 92 05/17/20 12:56 37.9 C H 143 H 20 100/60 94 PG Care Time/CCT Total # of Minutes Spent Total Time Spent with Patient: Total time spent is greater than 50% in coordination of care (as documented) at patient's floor/unit and/or counseling patient: Coding Diagnoses Acute appendicitis K35.30 Acute appendicitis type: with localized peritonitis Appendicitis abscess presence: without abscess Appendicitis gangrene presence: without gangrene Appendicitis perforation presence: without perforation (1) Acute appendicitis Acute appendicitis type: with localized peritonitis Appendicitis abscess presence: without abscess Appendicitis gangrene presence: without gangrene Appendicitis perforation presence: without perforation Qualified Code(s): K35.30 - Acute appendicitis with localized peritonitis, without perforation or gangrene
[2020-05-17] MEDS ORDERED: PIPERACILLIN/TAZOBACTAM 4.5 GM/120 ML BAG IV ONE (15:27)
[2020-05-17] MEDS ORDERED: PIPERACILL/TAZOBAC CONSULT ACTIVE PRN ×2 (15:27→16:57)
--- NOTE | 2020-05-17 15:31 | Surgery Consultation ---
Date of Consultation May 17, 2020 Assessment & Plan (1) Acute appendicitis: This is a 74y M with a PMH of afib on xarelto who presents to the [facility] ED on 05/17/20 with complaints of fevers and abdominal pain. Workup in the ED revealed a WBC of 7.[address] a/p revealing findings concerning for acute appendicitis. On examination patient is tender to palpation in the RLQ with + guarding. In the ED patient is in rapid afib with HR's currently in the 120s- 130's which is somewhat improved after receiving IVF. Patient reports taking Xarelto this AM. As patient's appendix is non-perforated we think due to his anticoagulated state and HRs >120 it would be beneficial from our standpoint to have him admitted under medicine service for medical management. Please hold Xarelto now. Discussed with hospitalists potentially starting a heparin gtt. IV abx started and will keep patient NPO with IVF. We will continue to assess patient and decide on timing of surgical intervention for appendectomy pending patient's clinical progress & timing off xarelto. Patient seen and examined with Dr. Gottlieb. Supervising Physician Co-Signing Physician Notes As per Ольга Galindo physician assistant oceanographer Patient has pain both lower abdomen and may have started yesterday CT scan shows findings compatible with acute appendicitis with superior appendiceal infiltration Discussed the situation with medical service with the plan to optimize atrial fibrillation Patient will need surgery the issue is tried to time it in such a way that it would be less risky with Xarelto on board The patient did take a Xarelto dose this morning I will reevaluate the patient later this evening History of Present Illness History of Present Illness This is a 74y M with a PMH of afib on xarelto who presents to the [facility] ED on 05/17/20 with complaints of fevers and abdominal pain. Patient reports that he started feeling fatigued yesterday evening around 5pm and he developed bilateral lower abdominal pain later that evening. He did not sleep well through the night due to the pain. He states he has a high pain tolerance and rated the pain a 4/10, saying it was dull and felt like a fullness. He tried drinking some water last night which he vomited, saying it was bilious in appearance. This morning his pain slightly improved and he was able to eat a small piece of banana, applesauce, and drink some gatorade without vomiting. He does report that he didn't have much of an appetite. He said today all the fluids he drank went right through him, and he found it abnormal that he did not have a BM this AM as he takes psyllium and is usually pretty regular. Around 11a patient reported getting the chills and shakes which prompted him to come to the ED for further evaluation. In the ED patient was found to have a temperature of 37.9C and was in rapid afib. CT a/p was obtained that showed concern for acute appendicitis. Patient states at home he had a low grade temperature of 99F and felt sweaty. He denies any chest pain or shortness of breath. Allergies Allergy/AdvReac Type Severity Reaction Status Date / Time pollen extracts Allergy Mild SNEEZING, Verified 05/17/20 15:17 CONGESTION Home Medications Home Medications Medication Instructions Recorded Confirmed Type aspirin 81 mg tablet,delayed 81 mg PO QAM 07/25/19 05/17/20 History release naproxen 500 mg tablet 500 mg PO QAM tab 02/27/20 05/17/20 History Lactobacillus acidophilus 0 mg PO DAILY 05/17/20 05/17/20 History metoprolol succinate 12.5 mg PO QAM 05/17/20 05/17/20 History psyllium husk 6 g PO QAM 05/17/20 05/17/20 History rivaroxaban [Xarelto] 20 mg PO QAM 05/17/20 05/17/20 History Patient History Social History Smoking Status: Never smoker Second Hand Exposure: No; Do You Dip or Chew Tobacco: No; Tobacco Cessation Education Requested by Patient: No Hx Alcohol Use: Yes Alcohol type: beer Hx Substance Use: No Preferred Language: Uzbek Communication Ability: Effective Director Of Marketing Operations Required: No Beliefs That Will Affect Care: None Current Living Situation: Parent Other Information That Helps Us Care for You: No Feels Safe at Home: Yes Safety Concerns: Feels Safe At This Time Review of Systems Constitutional: + fever, + chills, + fatigue and + anorexia Respiratory: no dyspnea Cardiovascular: no chest pain Gastrointestinal: + abdominal pain (lower abdominal fullness/discomfort), + bloating, + nausea and + vomiting no BM today (abnormal for patient) Physical Exam Physical Exam: awake/alert Constitutional: well developed and well nourished; no acute distress Respiratory: normal respiratory effort Gastrointestinal (Abdomen): Inspection/Auscultation: + abdomen distended (mild); no abdominal surgical scar Percussion/Palpation: + abdomen tender (ttp b/l lower abdomen, worse in the RLQ) and + guarding Results & Data Vital Signs (Past 12 Hours) Vital Signs Temp Pulse Pulse Resp BP BP Pulse Ox 05/17/20 15:10 36.6 C 111 H 18 129/93 97 05/17/20 14:45 126 H 23 130/82 94 05/17/20 14:31 115 H 22 94 05/17/20 14:30 122 H 24 110/79 95 05/17/20 14:25 117 H 23 111/72 96 05/17/20 14:00 126 H 23 95 05/17/20 13:31 147 H 19 96 05/17/20 13:30 138 H 15 108/76 96 05/17/20 13:21 157 H 174 H 23 101/64 101/64 95 05/17/20 13:15 194 H 22 95 05/17/20 13:11 160 H 22 114/68 92 05/17/20 12:56 37.9 C H 143 H 20 100/[address] abd pelvis IV con only CLINICAL HISTORY: fever and LLQ pain COMPARISON STUDY: None. TECHNIQUE: Patient was scanned in a dynamic helical fashion during intravenous administration of 94 cc of Optiray 320. A dose lowering technique was utilized adhering to the principles of ALARA. CT DOSE: 261.47 mGy.cm FINDINGS: Lower chest: There is pulmonary emphysema. There are dependent atelectatic changes. There is mild right lower lobe bronchiectasis. Liver: The contrast-enhanced liver is normal in size, contour, and attenuation. There is no intrahepatic biliary ductal dilatation. The hepatic veins and portal veins are patent. Gallbladder: Unremarkable. Spleen: Normal in size and attenuation. Pancreas: Unremarkable. Adrenal glands: Unremarkable. 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 Bowel: There are no transition zones indicate bowel obstruction. There is extensive colonic diverticulosis. There are no acute peridiverticular inflammatory changes. There is a dilated fluid-filled appendix. There are periappendiceal inflammatory changes. The findings are indicative of acute appendicitis, and surgical consultation is recommended. Peritoneum: There is no intraperitoneal free air or abdominal ascites. Vasculature: The abdominal aorta is normal in course and caliber. Adenopathy: None. Pelvic viscera: There is mild prostatomegaly Skeletal structures: There are postsurgical changes of a total left hip arthroplasty. IMPRESSION: 1. CT findings indicative of acute appendicitis. Clinical correlation is advocated as the patient is reported to have left lower quadrant abdominal pain. Surgical consultation is recommended 2. Extensive colonic diverticulosis. No evidence of acute diverticulitis 3. Bilateral renal hypodensities which have a somewhat triangular configuration. While nonspecific this could represent the sequela of prior renal infarcts. ACT 112: Negative or not required by law. Electronically signed by: Lee Hughes M.D. 05/17/2020 2:29 PM PG Care Time/CCT Total # of Minutes Spent Total Time Spent with Patient: Total time spent is greater than 50% in coordination of care (as documented) at patient's floor/unit and/or counseling patient: Coding Level of Care Code 98262 Office/Outpt Visit, New Diagnoses Acute appendicitis K35.30 Acute appendicitis type: with localized peritonitis Appendicitis abscess presence: without abscess Appendicitis gangrene presence: without gangrene Appendicitis perforation presence: without perforation (1) Acute appendicitis Acute appendicitis type: with localized peritonitis Appendicitis abscess presence: without abscess Appendicitis gangrene presence: without gangrene Appendicitis perforation presence: without perforation Qualified Code(s): K35.30 - Acute appendicitis with localized peritonitis, without perforation or gangrene
--- NOTE | 2020-05-17 15:57 | History & Physical Report ---
Date of Service May 17, 2020 Assessment & Plan (1) Acute appendicitis: Patient is evaluated by general surgery with feels he suffers from acute appendiceal inflammation and we taken on urgently to the operating room once his medical management is optimized. Pt will be npo and maintained on Zosyn CT scan abdomen pelvis 05/17/2020 IMPRESSION: 1. CT findings indicative of acute appendicitis. Clinical correlation is advocated as the patient is reported to have left lower quadrant abdominal pain. Surgical consultation is recommended 2. Extensive colonic diverticulosis. No evidence of acute diverticulitis 3. Bilateral renal hypodensities which have a somewhat triangular configuration. While nonspecific this could represent the sequela of prior renal infarcts (2) Atrial fibrillation with rapid ventricular response: Patient typically sees Dr. Carson. He currently has atrial fibrillation rapid ventricular response. Patient will have IV metoprolol tartrate available PRN. The pt said he took his metoprolol, his typical daily dose of metoprolol will be increased to 25 mg daily regarding anticoagulation, will need to be off xarelto for 24 hours, did not have previous issues when off anticoagulation, will not need to bridge at this time, but will ask to resume anticoagulation once hemostasis is achieved this maybe in the form of heparin or lovenox until pt is stable (3) Hypertension: (4) Hypercholesterolemia: History of Present Illness Primary Care Provider: Rashel Cueto MD 74-year-old male who presented to the emergency department for an evaluation of fever and altered mental status. Apparently the patient has been experiencing confusion all morning. He also noticed an elevated temperature. The patient also complains of left-sided abdominal pain. He denies having any diarrhea. He has had no nausea or vomiting. He has had no chest pain. He has noticed that his heart rate has been increasing and has a history of atrial fibrillation (typically sees Dr Carson for PAF and has been on metoprolol and xarelto). He denies having any lower extremity swelling or rash. The patient has not been seen by her primary care physician for the symptoms. I was called by General surgery and due to uncontrolled heart rate and xarelto affecting surgical hemostasis, medicine was asked to admit to optimize this pt prior to surgery Allergies Allergy/AdvReac Type Severity Reaction Status Date / Time pollen extracts Allergy Mild SNEEZING, Verified 05/17/20 15:17 CONGESTION Home Medications Home Medications Medication Instructions Recorded Confirmed Type aspirin 81 mg tablet,delayed 81 mg PO QAM 07/25/19 05/17/20 History release naproxen 500 mg tablet 500 mg PO QAM tab 02/27/20 05/17/20 History Lactobacillus acidophilus 0 mg PO DAILY 05/17/20 05/17/20 History metoprolol succinate 12.5 mg PO QAM 05/17/20 05/17/20 History psyllium husk 6 g PO QAM 05/17/20 05/17/20 History rivaroxaban [Xarelto] 20 mg PO QAM 05/17/20 05/17/20 History Past Med/Surg History Social History Smoking Status: Never smoker Review of Systems Review of Systems: Mild distress and fatigue no headache, blurry or double vision no speech or swallowing issues no chest pain, pressure or palpitations no shortness of breath, cough or wheezes no abdominal pain, nausea or vomiting, diarrhea or constipation no dysuria, hematuria or frequency no focal joint pain or swelling no back pain, CVA tenderness or radicular pain no bruising, bleeding or rashes no focal signs of weakness or numbness or altered sensation no complaints or anxiety or depression Physical Exam Physical Exam: The patient appeared well nourished and normally developed. Vital signs as documented. Head exam is normocephalic atraumatic no scleral icterus Neck is without JVD, thyromegaly, or carotid bruits. Lungs are clear to auscultation, no focal loss of breath sounds Cardiac exam, Rhythm is regular.. No murmurs, rubs or gallops. Abdominal exam reveals normal bowel sounds, soft non tender, no masses Extremities are nonedematous and both pedal pulses are normal. Neurologic exam is alert and oriented, no focal loss of strength or sensation Skin is without bruises or rashes Psychologically is without concerns for anxiety or depression Results & Data Results & Data ([facility]) Vital Signs (Past 12 Hours) Vital Signs Temp Pulse Pulse Resp BP BP Pulse Ox 05/17/20 15:33 131 H 20 05/17/20 15:10 97.9 F 111 H 18 129/93 97 05/17/20 15:00 123 H 22 129/93 96 05/17/20 14:45 126 H 23 130/82 94 05/17/20 14:31 115 H 22 94 05/17/20 14:30 122 H 24 110/79 95 05/17/20 14:25 117 H 23 111/72 96 05/17/20 14:00 126 H 23 95 05/17/20 13:31 147 H 19 96 05/17/20 13:30 138 H 15 108/76 96 05/17/20 13:21 157 H 174 H 23 101/64 101/64 95 05/17/20 13:15 194 H 22 95 05/17/20 13:11 160 H 22 114/68 92 05/17/20 12:56 100.2 F H 143 H 20 100/60 94 PG Care Time/CCT Total # of Minutes Spent Total Time Spent with Patient: Total time spent is greater than 50% in coordination of care (as documented) at patient's floor/unit and/or counseling patient: Coding Level of Care Code 06351 Initial Inpt Care Lvl 3 Diagnoses Acute appendicitis K35.30 Acute appendicitis type: with localized peritonitis Appendicitis abscess presence: without abscess Appendicitis gangrene presence: without gangrene Appendicitis perforation presence: without perforation Atrial fibrillation with rapid ventricular response I48.91 Hypertension I10 Hypercholesterolemia E78.00 (1) Acute appendicitis Acute appendicitis type: with localized peritonitis Appendicitis abscess presence: without abscess Appendicitis gangrene presence: without gangrene Appendicitis perforation presence: without perforation Qualified Code(s): K35.30 - Acute appendicitis with localized peritonitis, without perforation or gangrene
--- NOTE | 2020-05-17 16:32 | Electrocardiogram Report ---
Test Reason : Blood Pressure : / mmHG Vent. Rate : 164 BPM Atrial Rate : 202 BPM P-R Int : 000 ms QRS Dur : 088 ms QT Int : 278 ms P-R-T Axes : 000 055 -88 degrees QTc Int : 459 ms Poor data quality, interpretation may be adversely affected Atrial fibrillation with rapid ventricular response Abnormal ECG When compared with ECG of 02-JUL-2017 23:09, Vent. rate has increased BY [address] now depressed in Anterolateral leads Confirmed by Nguyễn Alanis ([id number]) on 05/17/2020 4:32:19 PM Referred By: Rashel Cueto Confirmed By:Nguyễn Alanis
[2020-05-17] MEDS ORDERED: ONDANSETRON INJ 2 MG/ML 2 ML VIAL IV PRN (16:57)
[2020-05-17] MEDS ORDERED: METOPROLOL TARTRATE 1 MG/ML VIAL IV PRN (16:57)
[2020-05-17] MEDS ORDERED: ACETAMINOPHEN 325 MG TAB PO PRN (16:57)
[2020-05-17] MEDS ORDERED: MoRPHine SULFATE 2 MG/ML CARP IV PRN (16:57)
[2020-05-17] MEDS: NSS + 20MEQ KCL 20 MEQ/1,000 ML BAG IV SCH (18:07)
--- NOTE | 2020-05-17 20:28 | Surgery Progress Note ---
Date of Service May 17, 2020 Assessment & Plan (1) Acute appendicitis: Discussed with the patient most likely to proceed with surgery tomorrow morning on the basis of his Xarelto dose which is 20 mg/day and a normal renal function waiting 24 hours with a pretty appropriate to minimize bleeding presently is not on any other anticoagulation and appreciate medicine input We will plan to do an open procedure rather laparoscopic to have better control and localized dissection in one area (the patient is relatively thin) We will discuss further with medical service Present on Admission?: Yes Subjective Resting comfortably without any increase in abdominal discomfort no nausea Physical Exam Constitutional: Patient right lower quadrant tenderness is pretty much unchanged from earlier today is just inferior to McBurney's point the rest of the abdomen is benign Last vitals were noted Results & Data Vital Signs (Past 12 Hours) Vital Signs Temp Pulse Pulse Resp BP BP Pulse Ox 05/17/20 19:38 37.1 C 92 H 18 119/82 99 05/17/20 16:59 36.7 C 69 16 98/63 L 95 05/17/20 16:00 117 H 110 H 20 114/83 114/83 98 05/17/20 15:33 131 H 20 05/17/20 15:10 36.6 C 111 H 18 129/93 97 05/17/20 15:00 123 H 22 129/93 96 05/17/20 14:45 126 H 23 130/82 94 05/17/20 14:31 115 H 22 94 05/17/20 14:30 122 H 24 110/79 95 05/17/20 14:25 117 H 23 111/72 96 05/17/20 14:00 126 H 23 95 05/17/20 13:31 147 H 19 96 05/17/20 13:30 138 H 15 108/76 96 05/17/20 13:21 157 H 174 H 23 101/64 101/64 95 05/17/20 13:15 194 H 22 95 05/17/20 13:11 160 H 22 114/68 92 05/17/20 12:56 37.9 C H 143 H 20 100/60 94 PG Care Time/CCT Total # of Minutes Spent Total Time Spent with Patient: Total time spent is greater than 50% in coordination of care (as documented) at patient's floor/unit and/or counseling patient: Coding Level of Care Code 09205 Subseq Hosp Care Lvl 2 Diagnoses Acute appendicitis K35.30 Acute appendicitis type: with localized peritonitis Appendicitis abscess presence: without abscess Appendicitis gangrene presence: without gangrene Appendicitis perforation presence: without perforation (1) Acute appendicitis Acute appendicitis type: with localized peritonitis Appendicitis abscess presence: without abscess Appendicitis gangrene presence: without gangrene Appendicitis perforation presence: without perforation Qualified Code(s): K35.30 - Acute appendicitis with localized peritonitis, without perforation or gangrene
[2020-05-17] MEDS: PIPERACILLIN/TAZOBACTAM 3.375 GM in DEXTROSE 5% 100 ML IV SCH (21:41)
--- NOTE | 2020-05-17 21:52 | Anesthesiology Consultation ---
Date of Service May 17, 2020 Assessment & Plan (1) Encounter for pre-operative examination: Chart Review Chart Review: Acceptable Risk for Surgery and Patient NOT seen in Pre Admission Testing Consults Requested none History Surgery Operation Date: 05/17/20 06:15 Proposed Procedures p Appendectomy - Tarik Gottlieb MD Height/Weight Height: 5 ft 5 in Weight: 62.4 kg Allergies Allergy/AdvReac Type Severity Reaction Status Date / Time pollen extracts Allergy Mild SNEEZING, Verified 05/17/20 15:17 CONGESTION Medications Home Medications Medication Instructions Recorded Confirmed Last Taken aspirin 81 mg tablet,delayed 81 mg PO QAM 07/25/19 05/17/20 05/17/20 release naproxen 500 mg tablet 500 mg PO QAM tab 02/27/20 05/17/20 05/17/20 Lactobacillus acidophilus 0 mg PO DAILY 05/17/20 05/17/20 05/17/20 metoprolol succinate 12.5 mg PO QAM 05/17/20 05/17/20 05/17/20 psyllium husk 6 g PO QAM 05/17/20 05/17/20 05/16/20 rivaroxaban [Xarelto] 20 mg PO QAM 05/17/20 05/17/20 05/17/20 Active Medications Generic Name Dose Route Start Last Admin Trade Name Freq PRN Reason Stop Dose Admin Potassium Chloride/Sodium Chloride 20 meq in 1,000 mls @ 100 mls/hr 05/17/20 18:00 05/17/20 18:07 Normal Saline W/20 Meq Kcl IV 06/16/20 17:59 100 mls/hr .Q10H TI Administration Piperacillin Sod/Tazobactam 115 mls @ 28.75 mls/hr 05/17/20 22:00 05/17/20 21:41 Sod 3.375 gm/ Dextrose IV 05/27/20 21:59 28.8 mls/hr Q8H TI Administration Protocol Past Medical History Medical History Deviated nasal septum (Resolved 06/29/13) Dislocation of shoulder joint (Resolved 06/29/13) Hypercholesterolemia Hypertension PAF (paroxysmal atrial fibrillation) Social History Smoking Status: Never smoker Do You Dip or Chew Tobacco: No Hx Alcohol Use: Yes Alcohol type: beer alcohol intake frequency: 0-2 drinks per day Hx Substance Use: No Physical Exam Vital Signs Last Vital Signs Temp 37.1 C 05/17/20 19:38 Pulse 92 H 05/17/20 19:38 Resp 18 05/17/20 19:38 BP 119/82 05/17/20 19:38 Pulse Ox 99 05/17/20 19:38 Testing Laboratory Results 05/17/20 13:20 05/17/20 13:20 PT 15.2 Seconds (9.0-12.0) H 05/17/20 13:20 INR 1.5 (0.9-1.1) H 05/17/20 13:20 APTT 33.4 Seconds (21.0-31.0) H 05/17/20 13:20 Urine Color Yellow 05/17/20 14:45 Urine Appearance Clear (Clear) 05/17/20 14:45 Urine pH 7.0 (4.5-7.5) 05/17/20 14:45 Ur Specific [place] 1.018 (1.000-1.030) 05/17/20 14:45 Urine Protein Negative (Negative) 05/17/20 14:45 Urine Glucose (UA) Negative (Negative) 05/17/20 14:45 Urine Ketones Negative (Negative) 05/17/20 14:45 Urine Nitrite Negative (Negative) 05/17/20 14:45 Ur Leukocyte Esterase Negative (Negative) 05/17/20 14:45 Electrocardiogram Date: 05/17/20 Findings: + NSR @ anterolateral ST depressions Chest X-Ray Date: 05/17/20 Findings: + NAD
[2020-05-18] MEDS: NSS + 20MEQ KCL 20 MEQ/1,000 ML BAG IV SCH (05:33)
[2020-05-18] MEDS: PIPERACILLIN/TAZOBACTAM 3.375 GM in DEXTROSE 5% 100 ML IV SCH ×3 (05:33→22:37)
--- NOTE | 2020-05-18 05:47 | Surgery Progress Note ---
Date of Service May 18, 2020 Assessment & Plan (1) Acute appendicitis: We will plan for appendectomy this morning 715 we will do an open procedure risk and complication of been explained to the patient when he gets in the preop area I will have him sign the permit for surgery Present on Admission?: Yes Subjective Slept pretty much all night without any major issues denies any significant abdominal pain Physical Exam Physical Exam: Was asleep when I walked in but easily awoken oriented comfortable lying supine The abdomen is benign except tenderness in the right lower quadrant may be a little bit more than yesterday Results & Data Vital Signs (Past 12 Hours) Vital Signs Temp Pulse Resp BP Pulse Ox 05/18/20 03:45 36.7 C 101 H 17 144/50 H 97 05/17/20 23:26 36.4 C L 72 19 129/82 95 05/17/20 19:38 37.1 C 92 H 18 119/82 99 PG Care Time/CCT Total # of Minutes Spent Total Time Spent with Patient: Total time spent is greater than 50% in coordination of care (as documented) at patient's floor/unit and/or counseling patient: Coding Level of Care Code 26017 Subseq Hosp Care Lvl 3 Diagnoses Acute appendicitis K35.30 Acute appendicitis type: with localized peritonitis Appendicitis abscess presence: without abscess Appendicitis gangrene presence: without gangrene Appendicitis perforation presence: without perforation (1) Acute appendicitis Acute appendicitis type: with localized peritonitis Appendicitis abscess presence: without abscess Appendicitis gangrene presence: without gangrene Appendicitis perforation presence: without perforation Qualified Code(s): K35.30 - Acute appendicitis with localized peritonitis, without perforation or gangrene
[2020-05-18] MEDS ORDERED: DEXAMETHASONE SOD INJ 4 MG/ML VIAL ONE (06:34)
[2020-05-18] MEDS ORDERED: fentaNYL citrate 100 MCG/2 ML VIAL ONE (06:34)
[2020-05-18] MEDS ORDERED: ONDANSETRON INJ 2 MG/ML 2 ML VIAL ONE (06:34)
[2020-05-18] MEDS ORDERED: PROPOFOL IV EMULSION 10 MG/ML 20 ML VIAL IV ONE (06:34)
[2020-05-18] MEDS ORDERED: LIDOCAINE HCL 2% 2 ML VIAL/AMP(20MG/ML) INFIL ONE (06:34)
[2020-05-18] MEDS ORDERED: ROCURONIUM BROMIDE 10 MG/ML 5 ML VIAL IV ONE (06:34)
[2020-05-18 06:46] LABS: BUN Creatinine Ratio 15.4 (10-20); Calcium 8.2 mg/dl (8.5-10.1); Creatinine Clr Calc Pharmacy 58.7 ml/min; Est GFR (African American) 89.9; Est GFR (Non-African American) 77.6; Magnesium 2.2 mg/dl (1.8-2.4); Potassium 4.1 mmol/L (3.5-5.1)
[2020-05-18] MEDS ORDERED: LIDOCAINE/EPINEPHRINE 1% 20 ML VIAL ONE (06:59)
--- NOTE | 2020-05-18 07:47 | Hospitalist Progress Note ---
Date of Service May 18, 2020 Assessment & Plan (1) Acute appendicitis: Patient status post open appendectomy by Dr. Basim Burkett on 05/18/2020 reportedly the appendix remain intact but a small amount of purulent material oozed from the appendix surface subsequently recommendations would be for 2 weeks of antibiotics total. Patient will be maintained on Zosyn Diet advancement per the operative team metablic encephalopathy associated with fever and infection-> resolved CT scan abdomen pelvis 05/17/2020 IMPRESSION: 1. CT findings indicative of acute appendicitis. Clinical correlation is advocated as the patient is reported to have left lower quadrant abdominal pain. Surgical consultation is recommended 2. Extensive colonic diverticulosis. No evidence of acute diverticulitis 3. Bilateral renal hypodensities which have a somewhat triangular configuration. 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 Carson. He currently has atrial fibrillation rapid ventricular response. Patient will have IV metoprolol tartrate available PRN. The pt said he took his metoprolol, his typical daily dose of metoprolol will be increased to 25 mg daily regarding anticoagulation, patient will resume anticoagulation 48 hours postop as per surgical team (3) Hypertension: Patient is maintained on metoprolol at this time (4) Hypercholesterolemia: Admission and Anticipated Discharge Date Admission Date: May 17, 2020 Subjective Patient was seen postoperatively is doing quite well he is incision is right lower abdomen this was done as an open procedure due to the distress seen of the appendix by the surgeon Review of Systems Review of Systems: Mild distress and fatigue no headache, blurry or double vision no speech or swallowing issues no chest pain, pressure or palpitations no shortness of breath, cough or wheezes Mild right lower quadrant abdominal pain without nausea or vomiting, no flatus yet no dysuria, hematuria or frequency no focal joint pain or swelling no back pain, CVA tenderness or radicular pain no bruising, bleeding or rashes no focal signs of weakness or numbness or altered sensation no complaints or anxiety or depression Physical Exam Physical Exam: The patient appeared well nourished and normally developed. Vital signs as documented. Head exam is normocephalic atraumatic no scleral icterus Neck is without JVD, thyromegaly, or carotid bruits. Lungs are clear to auscultation, no focal loss of breath sounds Cardiac exam, Rhythm is regular.. No murmurs, rubs or gallops. Abdominal exam reveals hypoactive but present bowel sounds, soft mild right lower quadrant tenderness dressing in place Extremities are nonedematous and both pedal pulses are normal. Neurologic exam is alert and oriented, no focal loss of strength or sensation Skin is without bruises or rashes Psychologically is without concerns for anxiety or depression Results & Data Results & Data ([facility]) Vital Signs (Past 12 Hours) Vital Signs Temp Pulse Resp BP Pulse Ox 05/18/20 06:45 97.9 F 102 H 18 122/92 95 05/18/20 03:45 98.1 F 101 H 17 144/50 H 97 05/17/20 23:26 97.5 F L 72 19 129/82 95 PG Care Time/CCT Total # of Minutes Spent Total Time Spent with Patient: Total time spent is greater than 50% in coordination of care (as documented) at patient's floor/unit and/or counseling patient: Coding Level of Care Code 29921 Subseq Hosp Care Lvl 2 Diagnoses Acute appendicitis K35.30 Acute appendicitis type: with localized peritonitis Appendicitis abscess presence: without abscess Appendicitis gangrene presence: without gangrene Appendicitis perforation presence: without perforation Atrial fibrillation with rapid ventricular response I48.91 Hypertension I10 Hypercholesterolemia E78.00 (1) Acute appendicitis Acute appendicitis type: with localized peritonitis Appendicitis abscess presence: without abscess Appendicitis gangrene presence: without gangrene Appendicitis perforation presence: without perforation Qualified Code(s): K35.30 - Acute appendicitis with localized peritonitis, without perforation or gangrene
[2020-05-18] MEDS ORDERED: GLYCOPYRROLATE 0.2 MG/ML VIAL ONE (07:56)
[2020-05-18] MEDS ORDERED: NEOSTIGMINE METHYLSULFATE 5 MG/5 ML SYR ONE (07:56)
--- NOTE | 2020-05-18 08:01 | Post Operative Brief Note ---
PG Immediate Post Op with CF Date of Surgery May 18, 2020 Pre & Post Diagnosis Operation Date: 05/17/20 06:15 <No data on this case meets the specified criteria> Operation Date: 05/18/20 07:15 Pre-Op Diagnosis: ACUTE APPENDICITIS Post-Op Diagnosis: ACUTE APPENDICITIS I identified the patient and participated in the time-out.: Yes Procedure Operation Date: 05/17/20 06:15 <No data on this case meets the specified criteria> Operation Date: 05/18/20 07:15 Actual Procedures p Open Appendectomy(Not Applicable) - Tarik Gottlieb MD Surgeon Tarik Gottlieb MD Supervisor Curing Room nichol campbell Estimated Blood Loss 5 Findings Consistent with Post-Op Diagnosis Specimens Specimen Description: Permanent Solution: A.) Appendix
[2020-05-18] MEDS ORDERED: ePHEDrine sulfate 50 MG/ML AMP IV PRN (08:03)
[2020-05-18] MEDS ORDERED: fentaNYL citrate 100 MCG/2 ML VIAL IV PRN (08:03)
[2020-05-18] MEDS ORDERED: ATROPINE SULFATE 0.1 MG/ML 10ML SYR IV PRN (08:03)
[2020-05-18] MEDS ORDERED: ONDANSETRON INJ 2 MG/ML 2 ML VIAL IV PRN (08:03)
--- NOTE | 2020-05-18 08:10 | Operative Report ---
PG Post Operative Report Pre & Post Diagnosis Operation Date: 05/17/20 06:15 <No data on this case meets the specified criteria> Operation Date: 05/18/20 07:15 Pre-Op Diagnosis: ACUTE APPENDICITIS Post-Op Diagnosis: ACUTE APPENDICITIS I identified the patient and participated in the time-out.: Yes Procedure Operation Date: 05/17/20 06:15 <No data on this case meets the specified criteria> Operation Date: 05/18/20 07:15 Actual Procedures p Open Appendectomy(Not Applicable) - Tarik Gottlieb MD Patient was brought into the operating theater general endotracheal anesthesia supine position patient with right lower quadrant was shaved and prepped Betadine solution properly draped a timeout was had patient was identified and incision was made blankly at Arnold's point approximately an inch and a half long deepened through subcutaneous tissue we used [employer] retractors to walk down the subcu to the external fascia we incised along the course of its fibers retractor was moved down underneath that and muscle-splitting internal Bleich transversalis we are able identify the peritoneum which was elevated with hemostats and incised there was no fluid appreciated we easily identified the cecum we walked down towards the cecal cap I placed a finger could not see the appendix but I could feel it was going down towards the pelvic rim usually just blunt dissection with the finger we elevated out where we could see it the proximal appendix was normal distally was ischemic and just grabbing it there was some oozing from the wall once we elevated out of the wound completely we were able to use a CARYL stapler and resect the appendix off the cecum the area was irrigated and checked for hemostasis putting a lap packed into the wound into the pelvis and there was no evidence of any active bleeding the return of the packs were all free of blood that last we at this point then closed the peritoneum using a 3-0 chromic suture we then reapproximated the internal Bleich with a Vicryl suture and then closed the external fascia with interrupted 0 Vicryl suture the wound was irrigated multiple times as we were closing the frontal layers the subcu was similarly irrigated we approximated loosely with some 3-0 chromic and gaby for skin edges dressing was applied procedure was tolerated well estimated blood loss 5 cc addendum Nichol JOHN was present throughout the procedure and helped with exposure retraction and wound closure Surgeon Tarik Gottlieb MD Salesperson Floor Coverings nichol john Estimated Blood Loss 5 Findings Consistent with Post-Op Diagnosis Specimens appendix Description of Procedure merda I attest to the content of the Intraoperative Record and any orders documented therein. Any exceptions are noted below.
[2020-05-18] MEDS ORDERED: METOPROLOL TARTRATE 1 MG/ML VIAL IV ONE (08:23)
[2020-05-18] MEDS ORDERED: ESMOLOL HCL INJ 10 MG/ML 10ML VIAL IV ONE (08:23)
[2020-05-18] MEDS ORDERED: MoRPHine SULFATE 2 MG/ML CARP IV PRN (08:53)
[2020-05-18] MEDS ORDERED: OXYCODONE/ACETAMINOPHEN 5mg/325mg TAB PO PRN ×2 (08:53)
[2020-05-18] MEDS: METOPROLOL SUCC 25MG EXT REL TAB PO SCH (09:22)
[2020-05-18] MEDS: LACTATED RINGER'S 1,000 ML IV SCH ×2 (09:22→22:37)
--- NOTE | 2020-05-18 10:28 | Anesthesiology Progress Note ---
Date of Service May 18, 2020 Anesthesia Post Procedure Vital Signs Vital Signs: Temp Pulse Pulse Pulse Pulse Resp BP 05/18/20 10:02 36.3 C L 67 18 05/18/20 09:35 36.5 C 96 H 18 05/18/20 09:05 36.6 C 99 H 18 05/18/20 08:40 36.5 C 97 H 18 05/18/20 08:30 96 H 17 05/18/20 08:20 92 H 16 05/18/20 08:12 36.4 C L 89 05/18/20 06:45 36.6 C 102 H 18 05/18/20 03:45 36.7 C 101 H 17 05/17/20 23:26 36.4 C L 72 05/17/20 19:38 37.1 C 92 H 18 05/17/20 16:59 36.7 C 69 05/17/20 16:00 117 H 110 H 20 114/83 05/17/20 15:33 131 H 20 05/17/20 15:10 36.6 C 111 H 18 05/17/20 15:00 123 H 22 129/93 05/17/20 14:45 126 H 23 130/82 05/17/20 14:31 115 H 22 05/17/20 14:30 122 H 24 110/79 05/17/20 14:25 117 H 23 111/72 05/17/20 14:00 126 H 23 05/17/20 13:31 147 H 19 05/17/20 13:30 138 H 15 108/76 05/17/20 13:21 157 H 174 H 23 101/64 05/17/20 13:15 194 H 22 05/17/20 13:11 160 H 22 114/68 05/17/20 12:56 37.9 C H 143 H 20 100/60 BP Pulse Ox 05/18/20 10:02 118/76 96 05/18/20 09:35 115/78 97 05/18/20 09:05 116/74 97 05/18/20 08:40 123/79 97 05/18/20 08:30 126/80 98 05/18/20 08:20 124/79 98 05/18/20 08:12 115/79 100 05/18/20 06:45 122/92 95 05/18/20 03:45 144/50 H 97 05/17/20 23:26 129/82 95 05/17/20 19:38 119/82 99 05/17/20 16:59 98/63 L 95 05/17/20 16:00 114/83 98 05/17/20 15:33 05/17/20 15:10 129/93 97 05/17/20 15:00 96 05/17/20 14:45 94 05/17/20 14:31 94 05/17/20 14:30 95 05/17/20 14:25 96 05/17/20 14:00 95 05/17/20 13:31 96 05/17/20 13:30 96 05/17/20 13:21 101/64 95 05/17/20 13:15 95 05/17/20 13:11 92 05/17/20 12:56 94 Pain Intensity Abdomen: Pain Intensity: 2 Transfer of Care Handoff Completed per policy Notes Mental Status: alert / awake / arousable and participated in evaluation Patient Amnestic to Procedure: Yes Nausea / Vomiting: adequately controlled Pain: adequately controlled Airway Patency, RR, SpO2: stable & adequate BP & HR: stable & adequate Hydration State: stable & adequate Anesthetic Complications: no major complications apparent and Pt Satisfied with anesthetic care
[2020-05-18 14:09] LABS: Hematocrit (blood only) 42.2 % (42-52); Hemoglobin 14.4 g/dL (14.0-18.0); Mean Corpuscular Hemoglobin 31.5 pg (25-34); Mean Corpuscular Hgb Conc 34.1 g/dL (32-36); Mean Corpuscular Volume 92.3 fL (80-100); Mean Platelet Volume 10.7 fL (7.4-10.4); Platelet Count 163 K/uL (130-400); RDW Coefficient of Variation 13.4 % (11.5-14.5); RDW Standard Deviation 45.7 fL (36.4-46.3); Red Blood Count 4.57 M/uL (4.7-6.1); White Blood Count 12.48 K/uL (4.8-10.8)
[2020-05-19] MEDS: PIPERACILLIN/TAZOBACTAM 3.375 GM in DEXTROSE 5% 100 ML IV SCH ×3 (05:53→22:20)
[2020-05-19 06:59] LABS: Basophils # (auto) 0.01 K/uL (0-0.2); Basophils % (auto) 0.1 %; Eosinophils # (auto) 0.01 K/uL (0-0.5); Eosinophils % (auto) 0.1 %; Hematocrit (blood only) 39.6 % (42-52); Hemoglobin 13.7 g/dL (14.0-18.0); Immature Granulocytes # (auto) 0.03 K/uL (0.00-0.02); Immature Granulocytes % (auto) 0.3 %; Lymphocytes # (auto) 1.28 K/uL (1.2-3.4); Lymphocytes % (auto) 11.1 %; Mean Corpuscular Hemoglobin 31.2 pg (25-34); Mean Corpuscular Hgb Conc 34.6 g/dL (32-36); Mean Corpuscular Volume 90.2 fL (80-100); Mean Platelet Volume 11.3 fL (7.4-10.4); Monocytes # (auto) 1.11 K/uL (0.11-0.59); Monocytes % (auto) 9.6 %; Neutrophils # (auto) 9.14 K/uL (1.4-6.5); Neutrophils % (auto) 78.8 %; Platelet Count 170 K/uL (130-400); RDW Standard Deviation 42.7 fL (36.4-46.3); Red Blood Count 4.39 M/uL (4.7-6.1); White Blood Count 11.58 K/uL (4.8-10.8)
[2020-05-19 07:29] LABS: BUN Creatinine Ratio 12.4 (10-20); Calcium 8.6 mg/dl (8.5-10.1); Creatinine Clr Calc Pharmacy 53.7 ml/min; Est GFR (African American) 80.7; Est GFR (Non-African American) 69.6; Potassium 3.9 mmol/L (3.5-5.1)
[2020-05-19] MEDS: METOPROLOL SUCC 25MG EXT REL TAB PO SCH (08:37)
--- NOTE | 2020-05-19 11:39 | Surgery Progress Note ---
Date of Service May 19, 2020 Assessment & Plan (1) Acute appendicitis: Postoperative day #1 status post open appendectomy Doing well Bowels moving Would continue IV antibiotics for at least 1 more day White blood cell count has decreased today Subjective Postoperative day #1 status post open appendectomy Patient feels well Having very little pain Denies nausea and vomiting Ate about half of his tray this morning Had a bowel movement this morning and is passing flatus Physical Exam Gastrointestinal (Abdomen): Inspection/Auscultation: + abdomen distended (Mild), normal bowel sounds and + abdominal surgical incision (Clean, dry and intact) Percussion/Palpation: abdomen soft Results & Data Vital Signs (Past 12 Hours) Vital Signs Temp Pulse Pulse Resp BP Pulse Ox 05/19/20 08:11 92 H 05/19/20 07:10 36.8 C 86 18 139/90 94 05/19/20 04:54 37.0 C 101 H 19 159/91 H 96 Laboratory Results 05/19/20 05/19/20 05/18/20 Range/Units 06:28 06:28 13:58 WBC 11.58 H 12.48 H (4.8-10.8) K/uL RBC 4.39 L 4.57 L (4.7-6.1) M/uL Hgb 13.7 L 14.4 (14.0-18.0) g/dL Hct 39.6 L 42.2 (42-52) % MCV 90.2 92.3 (80-100) fL MCH 31.2 31.5 (25-34) pg MCHC 34.6 34.1 (32-36) g/dL RDW Std Deviation 42.7 45.7 (36.4-46.3) fL RDW Coeff of Zeus 13.0 13.4 (11.5-14.5) % Plt Count 170 163 (130-400) K/uL MPV 11.3 H 10.7 H (7.4-10.4) fL Immature Gran % (Auto) 0.3 % Neut % (Auto) 78.8 % Lymph % (Auto) 11.1 % Butler % (Auto) 9.6 % Eos % (Auto) 0.1 % Baso % (Auto) 0.1 % Neut # (Auto) 9.14 H (1.4-6.5) K/uL Lymph # (Auto) 1.28 (1.2-3.4) K/uL Butler # (Auto) 1.11 H (0.11-0.59) K/uL Eos # (Auto) 0.01 (0-0.5) K/uL Baso # (Auto) 0.01 (0-0.2) K/uL Immature Gran # (Auto) 0.03 H (0.00-0.02) K/uL Sodium 141 (136-145) mmol/L Potassium 3.9 (3.5-5.1) mmol/L Chloride 111 H (98-107) mmol/L Carbon Dioxide 25 (21-32) mmol/L Anion Gap 5.0 (3-11) BUN 13 (7-18) mg/dl Creatinine 1.05 (0.6-1.4) mg/dl Est Cr Clr Drug Dosing 53.7 ml/min Est GFR ( Amer) 80.7 Est GFR (Non-Af Amer) 69.6 BUN/Creatinine Ratio 12.4 (10-20) Glucose 100 H (70-99) mg/dl Calcium 8.6 (8.5-10.1) mg/dl (1) Acute appendicitis Acute appendicitis type: with localized peritonitis Appendicitis abscess presence: without abscess Appendicitis gangrene presence: without gangrene Appendicitis perforation presence: without perforation Qualified Code(s): K35.30 - Acute appendicitis with localized peritonitis, without perforation or gangrene
[2020-05-19] MEDS: LACTATED RINGER'S 1,000 ML IV SCH (13:31)
--- NOTE | 2020-05-19 13:44 | Electrocardiogram Report ---
Test Reason : Blood Pressure : / mmHG Vent. Rate : 106 BPM Atrial Rate : 394 BPM P-R Int : 000 ms QRS Dur : 092 ms QT Int : 346 ms P-R-T Axes : 000 066 054 degrees QTc Int : 459 ms Atrial fibrillation with rapid ventricular response Abnormal ECG When compared with ECG of 17-MAY-2020 13:08, Vent. rate has decreased BY 58 BPM Non-specific change in ST segment in Inferior leads ST no longer depressed in Anterolateral leads Nonspecific T wave abnormality no longer evident in Inferior leads T wave inversion no longer evident in Lateral leads Confirmed by Rashel Carson ([id number]) on 05/19/2020 1:44:16 PM Referred By: Rashel Cueto Confirmed By:Rashel Carson
--- NOTE | 2020-05-19 18:45 | Hospitalist Progress Note ---
Date of Service May 19, 2020 Assessment & Plan (1) Acute appendicitis: Patient status post open appendectomy by Dr. Basim Burkett on 05/18/2020 reportedly the appendix remain intact but a small amount of purulent material oozed from the appendix surface subsequently recommendations Patient will be maintained on Zosyn, will complete 2 weeks total likely home on augmentin minor post op acute blood loss anemia Diet advancement per the operative team metabolic encephalopathy associated with fever and infection-> resolved CT scan abdomen pelvis 05/17/2020 IMPRESSION: 1. CT findings indicative of acute appendicitis. Clinical correlation is advocated as the patient is reported to have left lower quadrant abdominal pain. Surgical consultation is recommended 2. Extensive colonic diverticulosis. No evidence of acute diverticulitis 3. Bilateral renal hypodensities which have a somewhat triangular configuration. 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 Carson. He currently has atrial fibrillation rapid ventricular response. Patient will have IV metoprolol tartrate available PRN. The pt said he took his metoprolol, his typical daily dose of metoprolol increased to 25 mg daily and tolerated regarding anticoagulation, patient will resume anticoagulation 48 hours postop as per surgical team (3) Hypertension: Patient is maintained on metoprolol at this time (4) Hypercholesterolemia: Admission and Anticipated Discharge Date Admission Date: May 17, 2020 Subjective Postoperative open appendectomy, doing well, eating diet, flatus , good pain control, afib remains but is rate controlled Review of Systems Review of Systems: Mild distress and fatigue no headache, blurry or double vision no speech or swallowing issues no chest pain, pressure or palpitations no shortness of breath, cough or wheezes Mild right lower quadrant abdominal pain without nausea or vomiting, no flatus yet no dysuria, hematuria or frequency no focal joint pain or swelling no back pain, CVA tenderness or radicular pain no bruising, bleeding or rashes no focal signs of weakness or numbness or altered sensation no complaints or anxiety or depression Physical Exam Physical Exam: The patient appeared well nourished and normally developed. Vital signs as documented. Head exam is normocephalic atraumatic no scleral icterus Neck is without JVD, thyromegaly, or carotid bruits. Lungs are clear to auscultation, no focal loss of breath sounds Cardiac exam, Rhythm is regular.. No murmurs, rubs or gallops. Abdominal exam reveals hypoactive but present bowel sounds, soft mild right lower quadrant tenderness dressing in place Extremities are nonedematous and both pedal pulses are normal. Neurologic exam is alert and oriented, no focal loss of strength or sensation Skin is without bruises or rashes Psychologically is without concerns for anxiety or depression Results & Data Results & Data ([facility]) Vital Signs (Past 12 Hours) Vital Signs Temp Pulse Pulse Resp BP Pulse Ox 05/19/20 15:34 98.8 F 91 H 20 153/91 H 95 05/19/20 14:49 84 05/19/20 12:11 97.7 F 100 H 18 150/91 H 92 05/19/20 08:11 92 H 05/19/20 07:10 98.2 F 86 18 139/90 94 PG Care Time/CCT Total # of Minutes Spent Total Time Spent with Patient: Total time spent is greater than 50% in coordination of care (as documented) at patient's floor/unit and/or counseling patient: Coding Level of Care Code 50875 Subseq Hosp Care Lvl 2 Diagnoses Acute appendicitis K35.30 Acute appendicitis type: with localized peritonitis Appendicitis abscess presence: without abscess Appendicitis gangrene presence: without gangrene Appendicitis perforation presence: without perforation Atrial fibrillation with rapid ventricular response I48.91 Hypertension I10 Hypercholesterolemia E78.00 (1) Acute appendicitis Acute appendicitis type: with localized peritonitis Appendicitis abscess presence: without abscess Appendicitis gangrene presence: without gangrene Appendicitis perforation presence: without perforation Qualified Code(s): K35.30 - Acute appendicitis with localized peritonitis, without perforation or gangrene
[2020-05-20] MEDS: LACTATED RINGER'S 1,000 ML IV SCH (01:57)
[2020-05-20] MEDS: PIPERACILLIN/TAZOBACTAM 3.375 GM in DEXTROSE 5% 100 ML IV SCH (06:11)
[2020-05-20 07:58] LABS: BUN Creatinine Ratio 11.1 (10-20); Calcium 8.3 mg/dl (8.5-10.1); Creatinine Clr Calc Pharmacy 56.4 ml/min; Est GFR (African American) 85.6; Est GFR (Non-African American) 73.8; Potassium 3.5 mmol/L (3.5-5.1)
[2020-05-20] MEDS: METOPROLOL SUCC 25MG EXT REL TAB PO SCH (09:45)
--- NOTE | 2020-05-20 12:34 | Surgery Progress Note ---
Date of Service May 20, 2020 Assessment & Plan (1) Acute appendicitis: Postoperative day #2 status post open appendectomy He is doing very well Has good GI function No evidence of wound infection Plan is for discharge and to see Dr. Stallworth early next week He will have to call the office for an appointment Subjective Postoperative day #2 status post open appendectomy. Patient feels well Tolerated regular diet Had 2 bowel movements this morning Passing flatus Denies nausea and vomiting Physical Exam Gastrointestinal (Abdomen): Inspection/Auscultation: normal bowel sounds and + abdominal surgical incision (Clean, dry and intact and without erythema); abdomen not distended Percussion/Palpation: + abdomen tender (Minimal incisional) and abdomen soft Results & Data Vital Signs (Past 12 Hours) Vital Signs Temp Pulse Pulse Resp BP Pulse Ox 05/20/20 12:04 36.5 C 103 H 17 150/84 H 96 05/20/20 11:07 117 H 05/20/20 07:10 36.9 C 85 18 143/71 H 95 05/20/20 04:26 36.5 C 100 H 18 143/89 H 91 Laboratory Results 05/20/20 Range/Units 07:03 Sodium 140 (136-145) mmol/L Potassium 3.5 (3.5-5.1) mmol/L Chloride 109 H (98-107) mmol/L Carbon Dioxide 25 (21-32) mmol/L Anion Gap 6.0 (3-11) BUN 11 (7-18) mg/dl Creatinine 1.00 (0.6-1.4) mg/dl Est Cr Clr Drug Dosing 56.4 ml/min Est GFR ( Amer) 85.6 Est GFR (Non-Af Amer) 73.8 BUN/Creatinine Ratio 11.1 (10-20) Glucose 84 (70-99) mg/dl Calcium 8.3 L (8.5-10.1) mg/dl (1) Acute appendicitis Acute appendicitis type: with localized peritonitis Appendicitis abscess presence: without abscess Appendicitis gangrene presence: without gangrene Appendicitis perforation presence: without perforation Qualified Code(s): K35.30 - Acute appendicitis with localized peritonitis, without perforation or gangrene
--- NOTE | 2020-05-20 16:53 | Discharge Summary ---
Date of Service May 20, 2020 Admission HPI Per Admitting Provider 74-year-old male who presented to the emergency department for an evaluation of fever and altered mental status. Apparently the patient has been experiencing confusion all morning. He also noticed an elevated temperature. The patient also complains of left-sided abdominal pain. He denies having any diarrhea. He has had no nausea or vomiting. He has had no chest pain. He has noticed that his heart rate has been increasing and has a history of atrial fibrillation (typically sees Dr Carson for PAF and has been on metoprolol and xarelto). He denies having any lower extremity swelling or rash. The patient has not been seen by her primary care physician for the symptoms. I was called by General surgery and due to uncontrolled heart rate and xarelto affecting surgical hemostasis, medicine was asked to admit to optimize this pt prior to surgery Principal Diagnosis acute appendicitis Discharge Exam The patient appeared well Vital signs as documented. Lungs are clear to auscultation and appear unlabored Cardiac exam, irregularly irregular but rate controlled.. No murmurs, rubs or gallops. Abdominal exam reveals normal bowel sounds, soft nonwound is clean dry and intact mild tenderness at the right lower quadrant the site of his abdominal wound gaby in place Extremities are nonedematous and both pedal pulses are normal. Neurologic exam is alert and oriented, no focal loss of strength or sensation Skin is without bruises or rashes Psychologically is without concerns for anxiety or depression Discharge Data Allergies Allergy/AdvReac Type Severity Reaction Status Date / Time pollen extracts Allergy Mild SNEEZING, Verified 05/17/20 15:17 CONGESTION Consultations 05/17/20 15:43 Consult General Surgery Stat ED Decision to Admit Stat 05/17/20 16:57 Consult General Surgery Routine Procedures Performed Operation Date: 05/17/20 06:15 <No data on this case meets the specified criteria> Operation Date: 05/18/20 07:15 Actual Procedures p Open Appendectomy(Not Applicable) - Tarik Gottlieb MD Ordered Studies 05/17/20 13:14 CT abd pelvis IV con only Stat CT head/brain wo con Stat Hospital Course (1) Acute appendicitis: Patient status post open appendectomy by Dr. Basim Burkett on 05/18/2020 reportedly the appendix remain intact but a small amount of purulent material oozed from the appendix surface subsequently recommendations Patient will complete 2 weeks total likely home on augmentin minor post op acute blood loss anemia tolerated Diet advancement per the operative team metabolic encephalopathy associated with fever and infection-> resolved CT scan abdomen pelvis 05/17/2020 IMPRESSION: 1. CT findings indicative of acute appendicitis. Clinical correlation is advocated as the patient is reported to have left lower quadrant abdominal pain. Surgical consultation is recommended 2. Extensive colonic diverticulosis. No evidence of acute diverticulitis 3. Bilateral renal hypodensities which have a somewhat triangular configuration. 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 Carson. He currently has atrial fibrillation rapid ventricular response. Patient will have IV metoprolol tartrate available PRN. The pt said he took his metoprolol, his typical daily dose of metoprolol 12.5 mg daily regarding anticoagulation, patient will resume anticoagulation 48 hours postop as per surgical team (3) Hypertension: Patient is maintained on metoprolol at this time (4) Hypercholesterolemia: Total Time Total Time Spent Total Time Spent (In Minutes): It required greater than 30 minutes to prepare this patient for discharge Discharge Plan Discharge Items Patient Disposition: Home - Self-Care Reason For Visit: ACUTE APPENDICITIS, AFIB W/ RVR Discharge Diagnosis: acute appendicitis, s/p open appendectomy atrial fibrillation Condition on Discharge: Good Activity: Per Instructions section Lifting: No more than 10 pounds Bathing Comment: may shower; no soaking in tubs/pools Exercise/Sports: Wait until after follow-up appointment Driving/Machine Use: do not resume driving while taking narcotics for pain Non-emergency contact: Surgeon Call non-emergency contact if: you have any medication questions, your symptoms worsen, your pain is not controlled, your pain is worsening, your pain is unusual for you, you have a fever, your temperature is above 101.5, your wound has increased redness, your wound has increased drainage and your wound pain has increased Follow-up/Referrals: Tarik Gottlieb MD [Surgeon] - (Please call to schedule follow up in clinic within 1 week) Rashel Cueto MD [Primary Care Provider] - Diet: Regular Addtl Attending Provider Instructions: You have surgical gaby in place that will be removed at your follow up appointment. Pending Studies at Discharge: Yes Studies:: surgical pathology Stand-Alone Forms: My [facility], Smoking Cessation Medications and DC Order Prescriptions: New amoxicillin-pot clavulanate [Augmentin] 875-125 mg tablet 1 tab PO BID Qty: 22 RF: 0 Continued aspirin 81 mg tablet,delayed release (DR/EC) 81 mg PO QAM RF: 0 naproxen 500 mg tablet 500 mg PO QAM RF: 0 metoprolol succinate 25 mg tablet extended release 24 hr 12.5 mg PO QAM RF: 0 Xarelto 20 mg tablet 20 mg PO QAM RF: 0 Lactobacillus acidophilus Capsule 0 mg PO DAILY RF: 0 psyllium husk 6 gram Powder In Packet 6 g PO QAM RF: 0 Discharge Orders: Discharge Order (Routine); Ordered 05/20/20 Ordered By: Addi Miller/Other Patient Handouts: Amoxicillin Clavulanic Acid tablets Admission Data Admit Date/Time: 05/17/20 15:52 Attending Provider: Addi Doran Admit Provider: Addi Doran Primary Care Provider: Rashel Cueto Other Providers: Tarik Gottlieb ; Addi Doran Other Interventions: Discharge Summary Assessment (RN) Last Done: 05/20/20 12:35 DC Date/Time DO NOT enter until pt leaves facility: 05/20/20 13:25 Coding Level of Care Code D/C Day Management >30 mins Diagnoses Acute appendicitis K35.30 Acute appendicitis type: with localized peritonitis Appendicitis abscess presence: without abscess Appendicitis gangrene presence: without gangrene Appendicitis perforation presence: without perforation Atrial fibrillation with rapid ventricular response I48.91 Hypertension I10 Hypercholesterolemia E78.00
== END 2020-05-20 13:25 | disposition home or self-care (01) ==
LOC: ED 12:50 → 2S 15:52 → INTOOBSV 15:52 → 2S 16:18

== ENCOUNTER 2020-12-27 17:54 | Observation (INO) ==
[2020-12-27 18:27] LABS: Basophils # (auto) 0.01 K/uL (0-0.2); Basophils % (auto) 0.2 %; Eosinophils # (auto) 0.23 K/uL (0-0.5); Eosinophils % (auto) 3.5 %; Hematocrit (blood only) 43.5 % (42-52); Hemoglobin 15.3 g/dL (14.0-18.0); Immature Granulocytes # (auto) 0.01 K/uL (0.00-0.02); Immature Granulocytes % (auto) 0.2 %; Lymphocytes # (auto) 2.41 K/uL (1.2-3.4); Lymphocytes % (auto) 36.6 %; Mean Corpuscular Hemoglobin 31.2 pg (25-34); Mean Corpuscular Hgb Conc 35.2 g/dL (32-36); Mean Corpuscular Volume 88.6 fL (80-100); Mean Platelet Volume 10.7 fL (7.4-10.4); Monocytes # (auto) 0.86 K/uL (0.11-0.59); Monocytes % (auto) 13.1 %; Neutrophils # (auto) 3.06 K/uL (1.4-6.5); Neutrophils % (auto) 46.4 %; Platelet Count 250 K/uL (130-400); RDW Coefficient of Variation 13.3 % (11.5-14.5); RDW Standard Deviation 43.3 fL (36.4-46.3); Red Blood Count 4.91 M/uL (4.7-6.1); White Blood Count 6.58 K/uL (4.8-10.8)
--- NOTE | 2020-12-27 18:33 | Emergency Department Note ---
Impression & Plan Stroke-like symptoms, Atrial fibrillation, Headache, Anticoagulated ED Provider Note INFORMANT: Patient ED PROVIDER(S): Jarrod Pham MD CHIEF COMPLAINT: Strokelike symptoms PLAN: Disposition: Admitted Condition: Good Outpatient prescription management: none Referral: None MEDICAL DECISION MAKING: Patient presented with a concerning history for strokelike symptoms. He was already 4 hours from the time of onset and was resolved upon my evaluation. He did well and his NIH stroke scale. The patient had bilirubin obtained which was unremarkable. His urinalysis was negative. CT of the head including CT angiography of the head and neck was performed. Was found to have plaque stenosis in the carotids and vertebrals however no acute territorial infarct or bleed was noted. Reassessment the patient was doing well. His ECG showed him to be in A. fib as did his cardiac monitoring. Given the event further management in the hospital was felt to be appropriate. Consultation was made with Dr. Samy Ovalle of the [facility] service. Patient was evaluated in the ER for further management. Patient is not a TPA candidate as his symptoms have resolved, he was over 3 hours from the time of onset, and he is on anticoagulation. Triage Nursing notes reviewed and agree them. Additional history obtained from patient's Vital Signs: reviewed and remarkable for borderline tachycardia Differential diagnosis: CVA, TIA, infection, dehydration, metabolic abnormality, hypo/hyperglycemia, electrolyte disturbance, anemia, hypoxia, cardiac sources, intracerebral event, toxicologic, neurologic, as well as other pathologies. Diagnostics interpreted by me: ECG: Twelve-lead ECG reveals atrial fibrillation at 100 bpm. Normal axis. No ST elevation or depression. No PVCs. When compared to May 192019 there is no significant change. Cardiac Monitoring: Cardiac monitoring ordered by me: The patient was placed on continuous cardiac monitoring and observed. It revealed a atrial fibrillation at 120 beats per minute without ectopy or evidence of dysrhythmia. Imaging studies: CT angiography of the head and neck as noted above. HPI: The patient is a 75 year old male who presents to the Emergency Room with complaints of strokelike symptoms. This started 1400 hrs. today and is now resolved. The patient also notes the following associated symptoms, mild headache that resolved. The patient has taken no medication for relieving factors. Current pain is rated as 0/10. Patient noted a mild headache. At 1700 hrs. today he was trying to fill out a holiday card and it did not go well. The states his writing was all gibberish and he could not complete the task. Patient has a history of A. fib and is anticoagulated. Pt denies LOC, fevers, chills, diaphoresis, visual changes, neck pain, chest pain, breathing difficul ties, nausea, vomiting, abdominal pain, back pain, melena, hematochezia, urinary symptoms, numbness, weakness, lymphadenopathy, rash, or other complaints. ROS: See above HPI for pertinent positives & negatives. A total of 10 systems reviewed and were otherwise negative. PAST MEDICAL HISTORY:See Below , A. fib PAST SURGICAL HISTORY:See Below, FAMILY HISTORY:See Below SOCIAL HISTORY:See Below, HOME MEDICATIONS:See Below ALLERGIES:See Below VITALS:See Below PHYSICAL EXAMINATION: GENERAL: Awake, alert, well-appearing, in no distress HENT: Normocephalic, atraumatic. Oropharynx unremarkable. PERRLA. EOMI. EYES: Normal conjunctiva. Sclera non-icteric. NECK: Inspection normal. Non-tender. Supple. No nuchal rigidity. FROM. No masses. RESPIRATORY: Clear to auscultation. No wheezes. No rales. Normal respiratory effort. CARDIAC: Normal rate. Irregular rhythm. No murmurs. No rubs. Extremities warm and well perfused. Pulses equal. No JVD. GI: Soft, non-distended. No tenderness to palpation. No rebound or guarding. No masses. RECTAL: Deferred. MUSCULOSKELETAL: Atraumatic. Chest examination reveals no tenderness. The back is symmetrical on inspection without obvious abnormality. There is no CVA tenderness to palpation. No joint edema. LOWER EXTREMITIES: Calves are equal size bilaterally and non-tender. No edema. No discoloration. NEURO: Normal sensorium. No sensory or motor deficits noted. Speech normal. No drift. Cranial nerves II through XII intact. SKIN: No rash or jaundice noted. Jarrod Pham MD Past Med/Surg History Medical History (Updated 12/27/20 @ 18:28 by Jarrod Pham MD) Deviated nasal septum (06/29/13) Dislocation of shoulder joint (06/29/13) Hypercholesterolemia Hypertension PAF (paroxysmal atrial fibrillation) Surgical History (Updated 07/31/20 @ 08:27 by Brianda Petit RN) Hx of appendectomy (05/18/20) Open Appendectomy Dr. Gottlieb 05/18/2020 Social History Smoking Status: Never smoker Second Hand Exposure: No; Hx Alcohol Use: Yes Alcohol type: beer Hx Substance Use: No Preferred Language: [place] Konger Communication Ability: Effective Cardiothoracic Physiotherapist Required: No Beliefs That Will Affect Care: None Current Living Situation: Parent Feels Safe at Home: Yes Assistive Devices: Glasses Allergies Allergies Allergy/AdvReac Type Severity Reaction Status Date / Time pollen extracts Allergy Mild SNEEZING, Verified 12/27/20 18:44 CONGESTION Home Meds Home Medications Medication Instructions Recorded Confirmed aspirin 81 mg tablet,delayed 81 mg PO QAM 07/25/19 12/27/20 release naproxen 500 mg tablet 500 mg PO QAM tab 02/27/20 12/27/20 Lactobacillus acidophilus 0 mg PO DAILY 05/17/20 12/27/20 Xarelto 20 mg PO QAM 05/17/20 12/27/20 psyllium husk 6 g PO QAM 05/17/20 12/27/20 saw palmetto 0 mg PO DAILY 12/27/20 12/27/20 Previous Rx's Medication Instructions Recorded metoprolol succinate 25 mg 12.5 mg PO QAM #45 tab 06/26/20 tablet,extended release 24 hr Results & Data (ED) Vital Signs Vital Signs - 24 hr 12/27/20 17:59 12/27/20 18:22 12/27/20 18:43 Temperature 36.6 C Temperature Source Temporal Artery Scan Pulse Rate 100 H Pulse Rate [Apical] 103 H Pulse Rhythm Regular Pulse Rhythm [Apical] Irregular Pulse Strength Normal Respiratory Rate 18 19 Respiratory Effort / Characteristics Non-Labored Spontaneous Non-Labored Respiratory Depth Normal Normal Respiratory Pattern Regular Regular Blood Pressure 144/80 H Blood Pressure [Right Arm] 151/113 H Blood Pressure Mean 101 Blood Pressure Mean [Right Arm] 125 Blood Pressure Position Sitting Pulse Oximetry 97 97 97 Oxygen Delivery Method Room Air Room Air Room Air Sepsis Recent Fever Within 48 Hours No Sepsis New/Unexplained Change in Mental Status No Sepsis Action Taken by Nursing No Action Required Laboratory Data Result diagrams: 12/27/20 18:19 03/11/21 19:06 Lab Results 12/27/20 12/27/20 12/27/20 Range/Units 18:19 18:19 18:19 WBC 6.58 (4.8-10.8) K/uL RBC 4.91 (4.7-6.1) M/uL Hgb 15.3 (14.0-18.0) g/dL Hct 43.5 (42-52) % MCV 88.6 (80-100) fL MCH 31.2 (25-34) pg MCHC 35.2 (32-36) g/dL RDW Std Deviation 43.3 (36.4-46.3) fL RDW Coeff of Zeus 13.3 (11.5-14.5) % Plt Count 250 (130-400) K/uL MPV 10.7 H (7.4-10.4) fL Immature Gran % (Auto) 0.2 % Neut % (Auto) 46.4 % Lymph % (Auto) 36.6 % [place] % (Auto) 13.1 % Eos % (Auto) 3.5 % Baso % (Auto) 0.2 % Neut # (Auto) 3.06 (1.4-6.5) K/uL Lymph # (Auto) 2.41 (1.2-3.4) K/uL [place] # (Auto) 0.86 H (0.11-0.59) K/uL Eos # (Auto) 0.23 (0-0.5) K/uL Baso # (Auto) 0.01 (0-0.2) K/uL Immature Gran # (Auto) 0.01 (0.00-0.02) K/uL PT 11.7 (9.0-12.0) Seconds INR 1.2 H (0.9-1.1) APTT 31.2 H (21.0-31.0) Seconds PTT Ratio 1.2 Sodium (136-145) mmol/L Potassium (3.5-5.1) mmol/L Chloride (98-107) mmol/L Carbon Dioxide (21-32) mmol/L Anion Gap (3-11) BUN (7-18) mg/dl Creatinine (0.6-1.4) mg/dl Est Cr Clr Drug Dosing ml/min Est GFR ( Amer) Est GFR (Non-Af Amer) BUN/Creatinine Ratio (10-20) Glucose (70-99) mg/dl Calcium (8.5-10.1) mg/dl Magnesium (1.8-2.4) mg/dl Total Bilirubin (0.2-1) mg/dl AST (15-37) U/L ALT (12-78) U/L Alkaline Phosphatase (45-117) U/L Troponin I (0-0.045) ng/ml Total Protein (6.4-8.2) gm/dl Albumin (3.4-5.0) gm/dl Globulin (2.5-4.0) gm/dl Albumin/Globulin Ratio (0.9-2) Urine Color Urine Appearance (Clear) Urine pH (4.5-7.5) Ur Specific [place] (1.000-1.030) Urine Protein (Negative) Urine Glucose (UA) (Negative) Urine Ketones (Negative) Urine Blood (Negative) Urine Nitrite (Negative) Urine Bilirubin (Negative) Urine Urobilinogen (Negative) Ur Leukocyte Esterase (Negative) COVID-19 Eval Order SARS-CoV-2, RNA, NAAT (NEGATIVE) Blood Type Cancelled Antibody Screen Cancelled 12/27/20 12/27/20 12/27/20 Range/Units 18:19 18:40 19:06 WBC (4.8-10.8) K/uL RBC (4.7-6.1) M/uL Hgb (14.0-18.0) g/dL Hct (42-52) % MCV (80-100) fL MCH (25-34) pg MCHC (32-36) g/dL RDW Std Deviation (36.4-46.3) fL RDW Coeff of Zeus (11.5-14.5) % Plt Count (130-400) K/uL MPV (7.4-10.4) fL Immature Gran % (Auto) % Neut % (Auto) % Lymph % (Auto) % [place] % (Auto) % Eos % (Auto) % Baso % (Auto) % Neut # (Auto) (1.4-6.5) K/uL Lymph # (Auto) (1.2-3.4) K/uL [place] # (Auto) (0.11-0.59) K/uL Eos # (Auto) (0-0.5) K/uL Baso # (Auto) (0-0.2) K/uL Immature Gran # (Auto) (0.00-0.02) K/uL PT (9.0-12.0) Seconds INR (0.9-1.1) APTT (21.0-31.0) Seconds PTT Ratio Sodium 138 (136-145) mmol/L Potassium 4.5 (3.5-5.1) mmol/L Chloride 106 (98-107) mmol/L Carbon Dioxide 30 (21-32) mmol/L Anion Gap 2.0 L (3-11) BUN 22 H (7-18) mg/dl Creatinine 1.28 (0.6-1.4) mg/dl Est Cr Clr Drug Dosing 43.4 ml/min Est GFR ( Amer) 63.0 Est GFR (Non-Af Amer) 54.4 BUN/Creatinine Ratio 17.5 (10-20) Glucose 97 (70-99) mg/dl Calcium 9.2 (8.5-10.1) mg/dl Magnesium 2.5 H (1.8-2.4) mg/dl Total Bilirubin 0.4 (0.2-1) mg/dl AST 20 (15-37) U/L ALT 30 (12-78) U/L Alkaline Phosphatase 59 (45-117) U/L Troponin I < 0.015 (0-0.045) ng/ml Total Protein 8.2 (6.4-8.2) gm/dl Albumin 3.9 (3.4-5.0) gm/dl Globulin 4.3 H (2.5-4.0) gm/dl Albumin/Globulin Ratio 0.9 (0.9-2) Urine Color Yellow Urine Appearance Clear (Clear) Urine pH 6.5 (4.5-7.5) Ur Specific [place] 1.013 (1.000-1.030) Urine Protein Negative (Negative) Urine Glucose (UA) Negative (Negative) Urine Ketones Negative (Negative) Urine Blood Negative (Negative) Urine Nitrite Negative (Negative) Urine Bilirubin Negative (Negative) Urine Urobilinogen Negative (Negative) Ur Leukocyte Esterase Negative (Negative) COVID-19 Eval Order SARS-CoV-2, RNA, NAAT (NEGATIVE) Blood Type Antibody Screen 0312/27/20 12/27/20 Range/Units 19:06 19:08 19:08 WBC (4.8-10.8) K/uL RBC (4.7-6.1) M/uL Hgb (14.0-18.0) g/dL Hct (42-52) % MCV (80-100) fL MCH (25-34) pg MCHC (32-36) g/dL RDW Std Deviation (36.4-46.3) fL RDW Coeff of Zeus (11.5-14.5) % Plt Count (130-400) K/uL MPV (7.4-10.4) fL Immature Gran % (Auto) % Neut % (Auto) % Lymph % (Auto) % [place] % (Auto) % Eos % (Auto) % Baso % (Auto) % Neut # (Auto) (1.4-6.5) K/uL Lymph # (Auto) (1.2-3.4) K/uL [place] # (Auto) (0.11-0.59) K/uL Eos # (Auto) (0-0.5) K/uL Baso # (Auto) (0-0.2) K/uL Immature Gran # (Auto) (0.00-0.02) K/uL PT (9.0-12.0) Seconds INR (0.9-1.1) APTT (21.0-31.0) Seconds PTT Ratio Sodium (136-145) mmol/L Potassium (3.5-5.1) mmol/L Chloride (98-107) mmol/L Carbon Dioxide (21-32) mmol/L Anion Gap (3-11) BUN (7-18) mg/dl Creatinine (0.6-1.4) mg/dl Est Cr Clr Drug Dosing ml/min Est GFR ( Amer) Est GFR (Non-Af Amer) BUN/Creatinine Ratio (10-20) Glucose (70-99) mg/dl Calcium (8.5-10.1) mg/dl Magnesium (1.8-2.4) mg/dl Total Bilirubin (0.2-1) mg/dl AST (15-37) U/L ALT (12-78) U/L Alkaline Phosphatase (45-117) U/L Troponin I (0-0.045) ng/ml Total Protein (6.4-8.2) gm/dl Albumin (3.4-5.0) gm/dl Globulin (2.5-4.0) gm/dl Albumin/Globulin Ratio (0.9-2) Urine Color Urine Appearance (Clear) Urine pH (4.5-7.5) Ur Specific [place] (1.000-1.030) Urine Protein (Negative) Urine Glucose (UA) (Negative) Urine Ketones (Negative) Urine Blood (Negative) Urine Nitrite (Negative) Urine Bilirubin (Negative) Urine Urobilinogen (Negative) Ur Leukocyte Esterase (Negative) COVID-19 Eval [facility] SARS-CoV-2, RNA, NAAT NEGATIVE (NEGATIVE) Blood Type A Positive Antibody Screen NEGATIVE Administered Medications Sodium Chloride (Nss 1000ml) 1,000 mls @ 50 mls/hr IV .Q20H TI Stop: 01/26/21 18:14 Last Admin: 12/27/20 18:43 Dose: 50 mls/hr Documented by: [id number] Discontinued Medications Ioversol (Optiray 320 125ml) 119 ml IV ONCE ONE Stop: 12/27/20 19:15 Last Admin: 12/27/20 19:14 Dose: 119 ml Documented by: [id number] Tamsulosin HCl (Tamsulosin Hcl 0.4 Mg Cap) 0.4 mg PO NOW STA Stop: 12/27/20 21:28 Last Admin: 12/27/20 22:20 Dose: 0.4 mg Documented by: [id number] Discharge Plan Visit Data Chief Complaint: Stroke/CVA Symptoms Stated Complaint: HEADACHE,CONFUSION ED Provider: Jarrod Pham Discharge Problem: Stroke-like symptoms, Atrial fibrillation, Headache, Anticoagulated Patient Disposition: Admitted As Inpatient Discharge Instructions Interventions: ED Discharge Assessment Last Done: 12/27/20 22:42
[2020-12-27 18:41] LABS: INR 1.2 (0.9-1.1); Partial Thromboplastin Ratio 1.2; Partial Thromboplastin Time 31.2 Seconds (21.0-31.0); Prothrombin Time 11.7 Seconds (9.0-12.0)
[2020-12-27] MEDS: SODIUM CHLORIDE 0.9% 1000ML 1,000 ML IV SCH (18:43)
[2020-12-27 18:50] LABS: Appearance Urine Clear (Clear); Bilirubin Urine Negative (Negative); Blood Urine Negative (Negative); Color Urine Yellow; Glucose Urine UA Negative (Negative); Ketones Urine Negative (Negative); Leukocyte Esterase Urine Negative (Negative); Nitrite Urine Negative (Negative); Protein Urine Negative (Negative); Specific Gravity Urine 1.013 (1.000-1.030); Urobilinogen Urine Negative (Negative); pH Urine 6.5 (4.5-7.5)
[2020-12-27 19:01] LABS: Alanine Aminotransferase 30 U/L (12-78); Albumin Globulin Ratio 0.9 (0.9-2); Albumin Level 3.9 gm/dl (3.4-5.0); Alkaline Phosphatase 59 U/L (45-117); BUN Creatinine Ratio 17.5 (10-20); Bilirubin,Total 0.4 mg/dl (0.2-1); Blood Urea Nitrogen 22 mg/dl (7-18); Calcium 9.2 mg/dl (8.5-10.1); Carbon Dioxide 30 mmol/L (21-32); Chloride 106 mmol/L (98-107); Creatinine Clr Calc Pharmacy 43.4 ml/min; Est GFR (Non-African American) 54.4; Globulin 4.3 gm/dl (2.5-4.0); Glucose 97 mg/dl (70-99); Sodium 138 mmol/L (136-145); Total Protein 8.2 gm/dl (6.4-8.2); Troponin I < 0.015 ng/ml (0-0.045)
[2020-12-27] MEDS ORDERED: OPTIRAY 320 125ml IV ONE (19:14)
--- NOTE | 2020-12-27 19:32 | CT Scan Report ---
CT head/brain wo con CLINICAL HISTORY: 75 years-old Male with Stroke Like Symptoms. Acute strokelike symptoms TECHNIQUE: Multiple axial CT images of the head were obtained without contrast. A dose lowering tech nique was utilized adhering to the principles of ALARA. CT DOSE: 1158.52 mGy.cm COMPARISON: CTA head neck of same day FINDINGS: No acute intracranial hemorrhage, midline shift, intracranial mass, hydrocephalus, territorial ischem ia or abnormal extra-axial collection. Age-related involutional changes with ex vacuo ventriculomegal y. White matter hypodensities suggest chronic microvascular ischemic disease. The calvarium is intact. The paranasal sinuses, mastoid air cells, and middle ear cavities are clear . IMPRESSION: No acute intracranial abnormality. ACT 112: Negative or not required by law. The above report was generated using voice recognition software. It may contain grammatical, syntax o r spelling errors. Electronically signed by: Humberto Francis M.D. 12/27/2020 7:31 PM
--- NOTE | 2020-12-27 19:39 | CT Scan Report ---
CT angio neck with con, CT angio head w con CLINICAL HISTORY: 75 years-old Male with Stroke Like Symptoms. Acute strokelike symptoms COMPARISON STUDY: Head CT of same day and also 05/17/2020 TECHNIQUE: Following the IV administration of 119 mL of Optiray 320, CT angiogram of the head and nec k was performed from the aortic arch to the skull apex. Images are reviewed in the axial, sagittal, a nd coronal planes. 3-D MIPS images are created and assessed. IV contrast was administered without com plication. All measurements were calculated based on NASCET criteria. A dose lowering technique was utilized adhering to the principles of ALARA. FINDINGS: Imaged opacified pulmonary arterial tree is unremarkable. Three-vessel morphology of the thoracic aor tic arch. Patency of the innominate and imaged subclavian arteries. The common carotid arteries are p atent. Mixed plaque of the left greater than right carotid bulbs and proximal internal carotid arteri es results in less than 50% stenosis bilaterally. The middle and anterior cerebral arteries are paten t. Codominant vertebral arteries. Calcified plaque at the origin of the right vertebral artery result s in approximately 70% stenosis on image 104. Right vertebral arteries otherwise widely patent. Calci fied plaque at the origin of the left vertebral artery without significant stenosis. The basilar and posterior cerebral arteries are patent. The cerebral venous sinuses are also patent. No abnormal intr acranial enhancement. Emphysema. No pneumothorax. Unremarkable soft tissues. Streak artifact from dental amalgam hardware. Degenerative changes of the cervical spine. IMPRESSION: 1. Atheromatous plaque of the left greater than right carotid bulbs and proximal internal carotid art eries results in less than 50% stenosis bilaterally. 2. 70% stenosis at the origin of the right vertebral artery secondary to atheromatous plaque. 3. Otherwise unremarkable CTA of the head and neck. ACT 112: Negative or not required by law. The above report was generated using voice recognition software. It may contain grammatical, syntax o r spelling errors. Electronically signed by: Humberto Francis M.D. 12/27/2020 7:38 PM
[2020-12-27 19:40] LABS: Potassium 4.5 mmol/L (3.5-5.1)
[2020-12-27 19:45] LABS: Magnesium 2.5 mg/dl (1.8-2.4)
--- NOTE | 2020-12-27 21:24 | History & Physical Report ---
Date of Service December 27, 2020 Assessment & Plan (1) Stroke-like symptoms: Strokelike symptoms/bilateral carotid stenosis/right vertebral artery stenosis- The patient will be admitted to telemetry for serial cardiac enzymes, serial EKG's, cardiac rhythm monitoring and a 2-D echocardiogram with Dopplers. Carotid stenosis: NAKUL, LICA both <50% Right vertebral artery stenosis 70% at the origin, is most likely to be contributing to his symptomatology. He reports that he is been doing more work around the house we are he has his head tilted backwards, and this is likely causing compression of this stenosed vertebral artery. Advised him to stop this type of activity. Stroke without TPA protocol order set Continue aspirin 81 mg every morning. We will leave it to neurology consult to determine if they like to change to clopidogrel Advised him to stop using naproxen, which can interfere with antiplatelet effect of aspirin Consult PT/OT/speech/neurology Present on Admission?: Yes (2) Carotid stenosis, bilateral: See above Present on Admission?: Yes (3) Stenosis of right vertebral artery: See above Present on Admission?: Yes (4) Atrial fibrillation: Atrial fibrillation/hypertension/chronic anticoagulation- Continue metoprolol succinate 12.5 mg daily. Continue Xarelto 20 mg every morning Present on Admission?: Yes (5) Hypertension: See above Present on Admission?: Yes (6) Anticoagulated: See above Present on Admission?: Yes (7) Hypercholesterolemia: Check a fasting lipid panel. Start atorvastatin 40 mg daily Present on Admission?: Yes (8) BPH w urinary obs/LUTS: Patient has disrupted sleep, reporting nocturia every 2 hours overnight. He had been started on saw palmetto in the outpatient setting, but has not noticed any improvement. We will start tamsulosin 0.4 mg p.o. at bedtime with first dose now. Improving his sleep quality can only potentially help with cognition. Present on Admission?: Yes History of Present Illness Chief Complaint: The patient presents to the emergency department due to family report of writing gibberish, as noted by his , and confused speech earlier in the day, as noted by his son. Primary Care Provider: Rashel Cueto MD The patient is a 75-year-old male with a past medical history including atrial fibrillation, chronic anticoagulation, atrial fib with RVR, hypertension and hypercholesterolemia who presents with symptoms as noted above. His symptoms were completely resolved by the time of my assessment. He had no previous occurrence of the symptoms. He denies any recent travels or sick exposures. He does report having to get up to urinate every 2 hours overnight, and has had disrupted sleep for several months. Allergies Allergy/AdvReac Type Severity Reaction Status Date / Time pollen extracts Allergy Mild SNEEZING, Verified 12/27/20 18:44 CONGESTION Home Medications Medication Instructions Recorded Confirmed Type aspirin 81 mg tablet,delayed 81 mg PO QAM 07/25/19 12/27/20 History release naproxen 500 mg tablet 500 mg PO QAM tab 02/27/20 12/27/20 History Lactobacillus acidophilus 0 mg PO DAILY 05/17/20 12/27/20 History Xarelto 20 mg PO QAM 05/17/20 12/27/20 History psyllium husk 6 g PO QAM 05/17/20 12/27/20 History metoprolol succinate 25 mg 12.5 mg PO QAM #45 tab 06/26/20 12/27/20 Rx tablet,extended release 24 hr saw palmetto 0 mg PO DAILY 12/27/20 12/27/20 History Past Med/Surg History Medical History (Updated 12/28/20 @ 03:43 by Samy Ovalle MD) BPH w urinary obs/LUTS Deviated nasal septum (06/29/13) Dislocation of shoulder joint (06/29/13) Hypercholesterolemia Hypertension PAF (paroxysmal atrial fibrillation) Surgical History (Updated 05/18/20 @ 08:27 by Brianda Petit RN) Hx of appendectomy (05/18/20) Open Appendectomy Dr. 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 Beliefs That Will Affect Care: None Current Living Situation: Spouse Current Living Situation Comment: Feels Safe at Home: Yes Safety Concerns: Feels Safe At This Time Assistive Devices: Glasses Review of Systems Review of Systems: The patient denies chest pain, palpitations, shortness of breath, dyspnea on exertion, cough, lower extremity swelling, sore throat, fevers, chills, sweats, nausea, vomiting, diarrhea , constipation, abdominal pain, pelvic pain, blood in urine or stool, dysuria, lightheadedness, dizziness, headache, loss of consciousness, rash, abnormal bruising or bleeding, imbalance, focal or generalized weakness, numbness or tingling in arms or legs, generalized arthralgias or myalgias, back or neck pain, or night sweats. The review of systems is otherwise negative other than for that already noted above, and at least 10 systems have been reviewed. Physical Exam Physical Exam: The patient is awake, alert and oriented 3, well developed and well nourished, normocephalic and atraumatic, lying in bed and in no acute distress. HEENT--PERRL, EOMI, mucous membranes and oropharynx normal. Neck--supple. No JVD. No bruits. Thyroid normal, trachea midline, no adenopathy. Heart--normal S1 and S2. No murmurs, rubs or gallops. Lungs--clear bilaterally, no respiratory distress, no accessory muscle use. Abdomen--normal bowel sounds and soft. Nontender. Nondistended. Extremities--no cyanosis or clubbing. No edema. Dermatologic--normal skin turgor, normal color, no abnormal lymph nodes, no rash. Neurologic--cranial nerves II through XII grossly intact. Rheumatologic--normal range of motion. Psychiatric--normal affect. Results & Data Results & Data ([facility]) Vital Signs (Past 12 Hours) Vital Signs Temp Pulse Pulse Resp BP BP Pulse Ox 12/27/20 18:43 103 H 19 151/113 H 97 12/27/20 18:22 97 12/27/20 17:59 97.9 F 100 H 18 144/80 H 97 Laboratory Results Laboratory Results WBC 6.58 K/uL (4.8-10.8) 12/27/20 18: RBC 4.91 M/uL (4.7-6.1) 12/27/20 18:19 Hgb 15.3 g/dL (14.0-18.0) 12/27/20 18:19 Hct 43.5 % (42-52) 12/27/20 18:19 MCV 88.6 fL (80-100) 12/27/20 18:19 MCH 31.2 pg (25-34) 12/27/20 18:19 MCHC 35.2 g/dL (32-36) 12/27/20 18:19 RDW Std Deviation 43.3 fL (36.4-46.3) 12/27/20 18:19 RDW Coeff of Zeus 13.3 % (11.5-14.5) 12/27/20 18:19 Plt Count 250 K/uL (130-400) 12/27/20 18:19 MPV 10.7 fL (7.4-10.4) H 12/27/20 18:19 Immature Gran % (Auto) 0.2 % 12/27/20 18:19 Neut % (Auto) 46.4 % 12/27/20 18:19 Lymph % (Auto) 36.6 % 12/27/20 18:19 [place] % (Auto) 13.1 % 12/27/20 18:19 Eos % (Auto) 3.5 % 12/27/20 18:19 Baso % (Auto) 0.2 % 12/27/20 18:19 Neut # (Auto) 3.06 K/uL (1.4-6.5) 12/27/20 18:19 Lymph # (Auto) 2.41 K/uL (1.2-3.4) 12/27/20 18:19 [place] # (Auto) 0.86 K/uL (0.11-0.59) H 12/27/20 18:19 Eos # (Auto) 0.23 K/uL (0-0.5) 12/27/20 18:19 Baso # (Auto) 0.01 K/uL (0-0.2) 12/27/20 18:19 Immature Gran # (Auto) 0.01 K/uL (0.00-0.02) 12/27/20 18:19 PT 11.7 Seconds (9.0-12.0) 12/27/20 18:19 INR 1.2 (0.9-1.1) H 12/27/20 18:19 APTT 31.2 Seconds (21.0-31.0) H 12/27/20 18:19 PTT Ratio 1.2 12/27/20 18:19 Sodium 138 mmol/L (136-145) 12/27/20 18:19 Potassium 4.5 mmol/L (3.5-5.1) 12/27/20 19:06 Chloride 106 mmol/L (98-107) 12/27/20 18:19 Carbon Dioxide 30 mmol/L (21-32) 12/27/20 18:19 Anion Gap 2.0 (3-11) L 12/27/20 18:19 BUN 22 mg/dl (7-18) H 12/27/20 18:19 Creatinine 1.28 mg/dl (0.6-1.4) 12/27/20 18:19 Est Cr Clr Drug Dosing 43.4 ml/min 12/27/20 18:19 Est GFR ( Amer) 63.0 12/27/20 18:19 Est GFR (Non-Af Amer) 54.4 12/27/20 18:19 BUN/Creatinine Ratio 17.5 (10-20) 12/27/20 18:19 Glucose 97 mg/dl (70-99) 12/27/20 18:19 Calcium 9.2 mg/dl (8.5-10.1) 12/27/20 18:19 Magnesium 2.5 mg/dl (1.8-2.4) H 12/27/20 19:06 Total Bilirubin 0.4 mg/dl (0.2-1) 12/27/20 18:19 AST 20 U/L (15-37) 12/27/20 19:06 ALT 30 U/L (12-78) 12/27/20 18:19 Alkaline Phosphatase 59 U/L (45-117) 12/27/20 18:19 Troponin I < 0.015 ng/ml (0-0.045) 12/27/20 18:19 Total Protein 8.2 gm/dl (6.4-8.2) 12/27/20 18:19 Albumin 3.9 gm/dl (3.4-5.0) 12/27/20 18:19 Globulin 4.3 gm/dl (2.5-4.0) H 12/27/20 18:19 Albumin/Globulin Ratio 0.9 (0.9-2) 12/27/20 18:19 Urine Color Yellow 12/27/20 18:40 Urine Appearance Clear (Clear) 12/27/20 18:40 Urine pH 6.5 (4.5-7.5) 12/27/20 18:40 Ur Specific [place] 1.013 (1.000-1.030) 12/27/20 18:40 Urine Protein Negative (Negative) 12/27/20 18:40 Urine Glucose (UA) Negative (Negative) 12/27/20 18:40 Urine Ketones Negative (Negative) 12/27/20 18:40 Urine Blood Negative (Negative) 12/27/20 18:40 Urine Nitrite Negative (Negative) 12/27/20 18:40 Urine Bilirubin Negative (Negative) 12/27/20 18:40 Urine Urobilinogen Negative (Negative) 12/27/20 18:40 Ur Leukocyte Esterase Negative (Negative) 12/27/20 18:40 COVID-19 Eval Order Covid19 IDNow [facility] 12/27/20 19:08 SARS-CoV-2, RNA, NAAT NEGATIVE (NEGATIVE) 12/27/20 19:08 Blood Type A Positive 12/27/20 19:06 Antibody Screen NEGATIVE 12/27/20 19:06 Diagnostic Findings [facility], [id number] CT Scan Report Patient: BRITTANY CONNELL Date: 12/27/20MR#: [id number]: 2725 MAIOC RDAcct ID:[id number]: Date: 1945[facility] Zip: [place], [place] [address]Ada: 75Location: EDSex: MRoom/Bed:Att Phy:Diagnosis: HEADACHE,CONFUSIONPri Phy: Rashel Cueto MDService Date: 12/27/20Fa Phy:Interpreting Phy: Bryan FrancisModoc Medical Centermoshe Phy: Ordering Phy: Jarrod Pham MD cc: ~ CT head/brain wo con CLINICAL HISTORY: 75 years-old Male with Stroke Like Symptoms. Acute strokelike symptoms TECHNIQUE: Multiple axial CT images of the head were obtained without contrast. A dose lowering technique was utilized adhering to the principles of ALARA. CT DOSE: 1158.52 mGy.cm COMPARISON: CTA head neck of same day FINDINGS: No acute intracranial hemorrhage, midline shift, intracranial mass, hydrocephalus, territorial ischemia or abnormal extra-axial collection. Age- related involutional changes with ex vacuo ventriculomegaly. White matter hypodensities suggest chronic microvascular ischemic disease. The calvarium is intact. The paranasal sinuses, mastoid air cells, and middle ear cavities are clear. IMPRESSION: No acute intracranial abnormality. ACT 112: Negative or not required by law. The above report was generated using voice recognition software. It may contain grammatical, syntax or spelling errors. Electronically signed by: Humberto Francis M.D. 12/27/2020 7:31 PM Dictated: 12/27/201927Transcribed: 12/27/201927 [facility], [phone] CT Scan Report Patient: BRITTANY CONNELL Date: 12/27/20MR#: [id number]: 2725 MA[address] RDAcct ID:[id number]: Date: [address] [place] [address] Zip: [place] [id number]: 75Location: EDSex: MRoom/Bed:Att Phy:Diagnosis: HEADACHE,CONFUSIONPri Phy: Rashel Cueto MDService Date: 12/27/20Fam Phy:Interpreting Phy: Bryan FrancisAdmit Phy: Ordering Phy: Jarrod Pham MD cc: ~ CT angio neck with con, CT angio head w con CLINICAL HISTORY: 75 years-old Male with Stroke Like Symptoms. Acute strokelike symptoms COMPARISON STUDY: Head CT of same day and also 05/17/2020 TECHNIQUE: Following the IV administration of 119 mL of Optiray 320, CT angiogram of the head and neck was performed from the aortic arch to the skull apex. Images are reviewed in the axial, sagittal, and coronal planes. 3-D MIPS images are created and assessed. IV contrast was administered without complication. All measurements were calculated based on NASCET criteria. A dose lowering technique was utilized adhering to the principles of ALARA. FINDINGS: Imaged opacified pulmonary arterial tree is unremarkable. Three-vessel morphology of the thoracic aortic arch. Patency of the innominate and imaged subclavian arteries. The common carotid arteries are patent. Mixed plaque of the left greater than right carotid bulbs and proximal internal carotid arteries results in less than 50% stenosis bilaterally. The middle and anterior cerebral arteries are patent. Codominant vertebral arteries. Calcified plaque at the origin of the right vertebral artery results in approximately 70% stenosis on image 104. Right vertebral arteries otherwise widely patent. Calcified plaque at the origin of the left vertebral artery without significant stenosis. The basilar and posterior cerebral arteries are patent. The cerebral venous sinuses are also patent. No abnormal intracranial enhancement. Emphysema. No pneumothorax. Unremarkable soft tissues. Streak artifact from dental amalgam hardware. Degenerative changes of the cervical spine. IMPRESSION: 1. Atheromatous plaque of the left greater than right carotid bulbs and proximal internal carotid arteries results in less than 50% stenosis bilaterally. 2. 70% stenosis at the origin of the right vertebral artery secondary to atheromatous plaque. 3. Otherwise unremarkable CTA of the head and neck. ACT 112: Negative or not required by law. The above report was generated using voice recognition software. It may contain grammatical, syntax or spelling errors. Electronically signed by: Humberto Francis M.D. 12/27/2020 7:38 PM Dictated: 12/27/201930Transcribed: 12/27/201930 Code Status & VTE Plan Code Status Full code VTE Prophylaxis Plan VTE Prophylaxis will be ordered: Yes PG Care Time/CCT Total # of Minutes Spent Total Time Spent with Patient: Total time spent is greater than 50% in coordination of care (as documented) at patient's floor/unit and/or counseling patient: Coding Level of Care Code 97306 OBS Care - Level 3 Diagnoses Stroke-like symptoms R29.90 Carotid stenosis, bilateral I65.23 Stenosis of right vertebral artery I65.01 Atrial fibrillation I48.91 Hypertension I10 Anticoagulated Z79.01 Hypercholesterolemia E78.00 BPH w urinary obs/LUTS N40.1; N13.8
[2020-12-27] MEDS ORDERED: TAMSULOSIN HCL 0.4 MG CAP PO STA (21:27)
[2020-12-27] MEDS ORDERED: ONDANSETRON INJ 2 MG/ML 2 ML VIAL IV PRN (23:06)
[2020-12-27] MEDS ORDERED: ACETAMINOPHEN 325 MG TAB PO PRN (23:06)
[2020-12-27] MEDS ORDERED: PHARMACIST DISCHARGE MED REC CONSULT PRN (23:06)
[2020-12-28 06:50] LABS: Basophils # (auto) 0.01 K/uL (0-0.2); Basophils % (auto) 0.2 %; Eosinophils # (auto) 0.22 K/uL (0-0.5); Eosinophils % (auto) 4.3 %; Hematocrit (blood only) 42.7 % (42-52); Hemoglobin 14.7 g/dL (14.0-18.0); Lymphocytes # (auto) 1.62 K/uL (1.2-3.4); Lymphocytes % (auto) 31.6 %; Mean Corpuscular Hemoglobin 30.8 pg (25-34); Mean Corpuscular Hgb Conc 34.4 g/dL (32-36); Mean Corpuscular Volume 89.5 fL (80-100); Mean Platelet Volume 11.1 fL (7.4-10.4); Monocytes # (auto) 0.63 K/uL (0.11-0.59); Monocytes % (auto) 12.3 %; Neutrophils # (auto) 2.65 K/uL (1.4-6.5); Neutrophils % (auto) 51.6 %; Platelet Count 197 K/uL (130-400); RDW Coefficient of Variation 13.1 % (11.5-14.5); RDW Standard Deviation 42.9 fL (36.4-46.3); Red Blood Count 4.77 M/uL (4.7-6.1); White Blood Count 5.13 K/uL (4.8-10.8)
[2020-12-28 07:13] LABS: Estimated Average Glucose 111 mg/dl; Hemoglobin A1C 5.5 % (4.5-5.6)
[2020-12-28 07:34] LABS: Albumin Level 3.4 gm/dl (3.4-5.0); BUN Creatinine Ratio 17.3 (10-20); Blood Urea Nitrogen 18 mg/dl (7-18); Calcium 8.9 mg/dl (8.5-10.1); Carbon Dioxide 26 mmol/L (21-32); Chloride 107 mmol/L (98-107); Chol HDL Ratio 4; Cholesterol 201 mg/dl (0-200); Creatinine Clr Calc Pharmacy 53.3 ml/min; Est GFR (Non-African American) 69.9; Glucose 100 mg/dl (70-99); HDL Cholesterol 54 mg/dl; LDL Cholesterol Calculated 130 mg/dl; Phosphorus 3.4 mg/dl (2.5-4.9); Potassium 3.6 mmol/L (3.5-5.1); Sodium 139 mmol/L (136-145); Triglycerides 85 mg/dl (0-150); Troponin I < 0.015 ng/ml (0-0.045); VLDL Cholesterol 17 mg/dl
--- NOTE | 2020-12-28 07:48 | Neurology Consultation ---
Date of Consultation December 28, 2020 Assessment & Plan (1) TIA (transient ischemic attack): Probable TIA localizing to the left cerebral hemisphere occurring in a patient with a past medical history of atrial fibrillation, on anticoagulation and daily low-dose aspirin. He has bilateral atherosclerotic plaque within the carotid bulbs and proximal internal carotid arteries, left greater than right, although both result in less than 50% narrowing. The 70% stenosis of the origin of the right vertebral artery is incidental. He has chronic small vessel ischemic disease on MRI as well as scattered old, lacunar infarcts within the cerebellar hemispheres and right basal ganglia. Neurologically, patient appears to be generally intact this morning although he does have some subtle speech disfluency which may be chronic. Again, no evidence of acute or subacute stroke on MRI. Management options for secondary stroke risk reduction are a bit limited at this point. I do agree with the addition of atorvastatin to his medication regimen, however. Furthermore, it would be reasonable to discontinue daily low-dose aspirin in favor of clopidogrel 75 mg/day which he will take in addition to Xarelto. He will need ongoing monitoring to assess for any bleeding complications. Follow-up with results of echocardiogram. PT/OT/speech therapy. Patient may follow-up in neurology clinic in 2 to 3 weeks. History of Present Illness Reason for Consultation: TIA Requesting Physician: Samy Ovalle MD Attending Physician: Samy Ovalle MD History of Present Illness The patient is a 75-year-old male who presented to the emergency department yesterday for further evaluation of strokelike symptoms characterized by difficulty writing on a holiday card. His writing was gibberish and he could not complete the task. He had a mild associated headache as well. Symptoms started around 2 PM and had resolved by the time he was assessed in the emergency department. Past medical history is notable for atrial fibrillation, anticoagulation, hypertension, and hypercholesterolemia. He is prescribed daily low-dose aspirin, Xarelto, and metoprolol as an outpatient. Initial neuro imaging including CT of the head and CT angiography of the head and neck were completed. He was found to have atheromatous plaque within the carotid bulbs and a 70% stenosis at the origin of the right vertebral artery. There was no evidence of acute process on CT of the head. A brain MRI has been completed as well. No areas of restricted diffusion to indicate acute or subacute infarct per my independent review. There is fairly extensive chronic small vessel ischemic disease, scattered tiny chronic lacunar infarcts or perhaps prominent perivascular spaces as well as moderate generalized atrophy. Allergies Allergy/AdvReac Type Severity Reaction Status Date / Time pollen extracts Allergy Mild SNEEZING, Verified 12/27/20 18:44 CONGESTION Home Medications Medication Instructions Recorded Confirmed Type aspirin 81 mg tablet,delayed 81 mg PO QAM 07/25/19 12/27/20 History release naproxen 500 mg tablet 500 mg PO QAM tab 02/27/20 12/27/20 History Lactobacillus acidophilus 0 mg PO DAILY 05/17/20 12/27/20 History Xarelto 20 mg PO QAM 05/17/20 12/27/20 History psyllium husk 6 g PO QAM 05/17/20 12/27/20 History metoprolol succinate 25 mg 12.5 mg PO QAM #45 tab 06/26/20 12/27/20 Rx tablet,extended release 24 hr saw palmetto 0 mg PO DAILY 12/27/20 12/27/20 History Patient History Medical History (Updated 12/28/20 @ 09:48 by Albert Osorio MD) BPH w urinary obs/LUTS Deviated nasal septum (06/29/13) Dislocation of shoulder joint (06/29/13) Hypercholesterolemia Hypertension PAF (paroxysmal atrial fibrillation) Surgical History (Updated 05/18/20 @ 08:27 by Brianda Petit RN) Hx of appendectomy (05/18/20) Open Appendectomy Dr. Gottlieb 05/18/2020 Social History Smoking Status: Never smoker Second Hand Exposure: No; Hx Alcohol Use: Yes Alcohol type: beer Hx Substance Use: No Preferred Language: Malay Communication Ability: Effective Pct Required: No Beliefs That Will Affect Care: None Current Living Situation: Spouse Current Living Situation Comment: Feels Safe at Home: Yes Safety Concerns: Feels Safe At This Time Assistive Devices: Glasses Review of Systems Constitutional: no fever and no chills Eyes: no blind spots and no diplopia Ear, Nose, Mouth, Throat: + hearing loss Respiratory: no cough and no dyspnea Cardiovascular: no chest pain and no palpitations Gastrointestinal: no nausea and no vomiting Genitourinary: no dysuria Musculoskeletal: no myalgia Integumentary: no lesions Neurologic: as per Subjective / HPI Psychiatric: no depression and no anxiety Exam (Neuro) Constitutional: well developed and well nourished; no acute distress Eyes: normal visual stout by confrontation, PERRL, normal accommodation and EOM intact bilaterally; no fundoscopic abnormality, no nystagmus and no papilledema Cardiovascular: Vessels: normal carotid upstroke; no carotid bruit Neurologic: Oriented to:: Person, Place and Time Memory: Short Term Intact and Remote Intact Attention: Span Intact and Concentration Intact Language: Naming Objects and Repeating Phrases Speech Fluency: Dysfluency (Mild speech disfluency noted); negative Dysarthria Speech Aphasia: negative Aphasia Fund of Knowledge: Current Events, Past History and Vocabulary Cranial Nerves: Normal II (Visual stout full to confrontation, visual acuity normal), III, IV, (Pupils equal round reactive to light and accommodation, eye movements normal), V (Facial sensation intact), VII (There is no facial droop or weakness), VIII (Hearing intact), IX, X (Palate elevates to midline), XI (Shoulder shrug intact) and XII (Tongue protrudes to midline) Motor Strength: Normal Lower Extremities and Normal Upper Extremities; negative Pronator Drift Motor Tone: Normal Lower Extremities and Normal Upper Extremities Muscle Bulk/Involuntary Movements: No Involuntary Movements; negative Muscle Atrophy Sensation: Light Touch Intact, Pain/Temperature Intact, Vibration Intact and Proprioception Intact Coordination: Normal; negative Limited Balance, Dysdiadochokinesia, Finger-Nose Abnormal and Heel-Ventura Abnormal Deep Tendon Reflexes: Rt Triceps: 2+, Lt Triceps: 2+, Rt Biceps: 2+, Lt Biceps: 2+, Rt Brachioradialis: 2+, Lt Brachioradialis: 2+, Rt Patellar: 2+, Lt Patellar: 2+, Rt Ankle: 2+ and Lt Ankle: 2+ Special Tests: negative Carin nski Present Gait: Normal Station and Gait Results & Data ([facility]) Vital Signs (Past 12 Hours) Vital Signs Temp Pulse Pulse Pulse Resp BP Pulse Ox 12/28/20 07:31 36.4 C L 98 H 18 105/67 97 12/28/20 03:00 36.8 C 110 H 18 112/72 94 12/28/20 00:42 102 H 12/28/20 00:00 37 C 92 H 18 147/99 H 96 12/27/20 22:21 88 14 152/92 H 97 Laboratory Results WBC 5.13, hemoglobin 14.7, hematocrit 42.7, platelet count 197, sodium 139, potassium 3.6, BUN 18, creatinine 1.04, glucose 100, hemoglobin A1c 5.5, troponin less than 0.015, triglycerides 85, cholesterol 201, LDL 130, VLDL 17, HDL 54 Diagnostic Findings Imaging including CT of the head, CT angiography of the head and neck, and brain MRI are as described in the HPI. Electrocardiogram reveals atrial fibrillation, 94 bpm. PG Care Time/CCT Total # of Minutes Spent Total Time Spent with Patient: Total time spent is greater than 50% in coordination of care (as documented) at patient's floor/unit and/or counseling patient: Coding Level of Care Code 62551 Initial Inpt Care Lvl 3 Diagnoses TIA (transient ischemic attack) G45.9
--- NOTE | 2020-12-28 08:17 | Magnetic Resonance Report ---
Brain MRI WITHOUT CONTRAST HISTORY: Left-sided headache. word finding difficulty. Assess for stroke. Slurred speech. TECHNIQUE: Multiplanar multisequence MRI of the brain was performed without the use of contrast. COMPARISON STUDY: Head CT 12/27/2020. FINDINGS: There is no mass, hematoma, midline shift, or acute infarct. The paranasal sinuses are essie r. The mastoid air cells are clear. The ventricles and sulci demonstrate mild age-related involutiona l changes. Scattered foci of T2 hyperintensity seen within the periventricular and subcortical white matter are nonspecific but suggestive of mild microvascular ischemic changes. The major vascular flow voids at the skull base are well-maintained. 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 IMPRESSION: No acute intracranial abnormality. Scattered foci of T2 hyperintensity seen within the periventricula r and subcortical white matter are nonspecific but favor microvascular ischemic change. ACT 112: Negative or not required by law. Electronically signed by: Saul García M.D. 12/28/2020 8:16 AM
[2020-12-28] MEDS: RIVAROXABAN 20 MG TAB PO SCH (08:25)
[2020-12-28] MEDS: ATORVASTATIN 40 MG TAB PO SCH (08:25)
[2020-12-28] MEDS ORDERED: ASPIRIN 81 MG ECTAB PO SCH (09:00)
[2020-12-28] MEDS ORDERED: METOPROLOL SUCC 25MG EXT REL TAB PO SCH (09:00)
--- NOTE | 2020-12-28 13:36 | Electrocardiogram Report ---
Test Reason : Blood Pressure : / mmHG Vent. Rate : 100 BPM Atrial Rate : 076 BPM P-R Int : 000 ms QRS Dur : 092 ms QT Int : 344 ms P-R-T Axes : 000 054 014 degrees QTc Int : 443 ms Atrial fibrillation Abnormal ECG When compared with ECG of 19-MAY-2020 07:26, No significant change was found Confirmed by Torsten Chris ([id number]) on 12/28/2020 1:36:13 PM Referred By: REFERRED SELF Confirmed By:Torsten Chris
--- NOTE | 2020-12-28 14:14 | Electrocardiogram Report ---
Test Reason : Blood Pressure : / mmHG Vent. Rate : 094 BPM Atrial Rate : 208 BPM P-R Int : 000 ms QRS Dur : 090 ms QT Int : 348 ms P-R-T Axes : 000 070 067 degrees QTc Int : 435 ms Atrial fibrillation Abnormal ECG When compared with ECG of 27-DEC-2020 18:17, (unconfirmed) No significant change was found Confirmed by Torsten Chris ([id number]) on 12/28/2020 2:14:07 PM Referred By: REFERRED SELF Confirmed By:Torsten Chris
--- NOTE | 2020-12-28 16:31 | XCELERA ---
[id number]
[2020-12-28] MEDS ORDERED: METOPROLOL TARTRATE 25 MG TAB PO STA (17:54)
--- NOTE | 2020-12-28 17:56 | Hospitalist Progress Note ---
Date of Service December 28, 2020 Assessment & Plan (1) TIA (transient ischemic attack): MRI brain neg for acute stroke. Symptoms localized to the left cerebral hemisphere. In light of TIA while on asa/xarelto Dr Osorio recommending we switch asa to plavix; leave xarelto the same. No deficits on exam today but is mildly confused in the face of TIA. Appreciate Dr Osorio's recommendations. (2) Stroke-like symptoms: TIA. See above. PT, OT, speech and neuro consults appreciated. Plavix in jocelin of asa. Cont xarelto. (3) Carotid stenosis, bilateral: <50%. No surgical intervention needed. Statin started. Plavix. 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 NOT the cause of presenting TIA, but bears future surveillance. Statin. Plavix. (5) Atrial fibrillation: Uncontrolled rates. HOLD metoprolol succinate. Place on PO metoprolol tartrate 25mg q6h. Titrate as necessary. Echo with preserved EF. Cont xarelto. (6) Hypertension: beta ar controlled (7) Anticoagulated: xarelto for chronic a.fib (8) Hypercholesterolemia: LDL 130 start lipitor 40mg daily (9) BPH w urinary obs/LUTS: Bps are low and we need more room for a.fib rate control Thus, hold flomax Consider finasteride in jocelin DVT proph - xarelto Due to rapid a.fib change observation status to full admission updated by phone later in the day that patient would not be d/c home today care d/w neurology Admission and Anticipated Discharge Date Admission Date: December 27, 2020 Subjective saw patient twice today first visit was early afternoon; came to visit during that encounter patient seemed very impulsive, walking around the room, getting up quickly from the bed, etc he seemed a bit confused he denied any slurred speech, focal motor weakness, or other neuro symptoms tele - a.fib, rates uncontrolled - especially with walking (140-150 BPM) agreed that patient was mildly confused today Review of Systems Constitutional: no fatigue and no anorexia Respiratory: no cough and no dyspnea Cardiovascular: no chest pain, no palpitations and no edema Gastrointestinal: no abdominal pain Physical Exam Constitutional: + altered mental status (mild); no acute distress ENMT: external ear and nose normal, oropharynx normal Respiratory: normal respiratory effort, lungs clear to auscultation Cardiovascular: Rate/Rhythm: + tachycardic and + irregularly irregular Heart Sounds: normal S1 and normal S2; no murmur Vessels: posterior tibial pulses present and dorsalis pedis pulses present; no JVD Extremities: no edema Gastrointestinal (Abdomen): normal bowel sounds, soft, nontender, no hepatosplenomegaly Psychiatric: Orientation: alert and oriented x 3 (but was confusing past events) Results & Data Results & Data ([facility]) Vital Signs (Past 12 Hours) Vital Signs Temp Pulse Pulse Resp BP Pulse Ox 12/28/20 15:32 36.7 C 93 H 20 132/78 96 12/28/20 11:36 37.1 C 103 H 18 99/65 L 95 12/28/20 08:00 95 H 12/28/20 07:31 36.4 C L 98 H 18 105/67 97 Laboratory Results Laboratory Results - last 24 hr 12/27/20 12/27/20 12/27/20 18:19 18:19 18:19 WBC 6.58 RBC 4.91 Hgb 15.3 Hct 43.5 MCV 88.6 MCH 31.2 MCHC 35.2 RDW Std Deviation 43.3 RDW Coeff of Zeus 13.3 Plt Count 250 MPV 10.7 H Immature Gran % (Auto) 0.2 Neut % (Auto) 46.4 Lymph % (Auto) 36.6 Winn % (Auto) 13.1 Eos % (Auto) 3.5 Baso % (Auto) 0.2 Neut # (Auto) 3.06 Lymph # (Auto) 2.41 Winn # (Auto) 0.86 H Eos # (Auto) 0.23 Baso # (Auto) 0.01 Immature Gran # (Auto) 0.01 PT 11.7 INR 1.2 H APTT 31.2 H PTT Ratio 1.2 Sodium Potassium Chloride Carbon Dioxide Anion Gap BUN Creatinine Est Cr Clr Drug Dosing Est GFR ( Amer) Est GFR (Non-Af Amer) BUN/Creatinine Ratio Glucose Estimat Average Glucose Hemoglobin A1c Calcium Phosphorus Magnesium Total Bilirubin AST ALT Alkaline Phosphatase Troponin I Total Protein Albumin Globulin Albumin/Globulin Ratio Triglycerides Cholesterol LDL Cholesterol, Calc VLDL Cholesterol, Calc HDL Cholesterol Cholesterol/HDL Ratio Urine Color Urine Appearance Urine pH Ur Specific [place] Urine Protein Urine Glucose (UA) Urine Ketones Urine Blood Urine Nitrite Urine Bilirubin Urine Urobilinogen Ur Leukocyte Esterase COVID-19 Eval Order Hepatitis C Ab Screen SARS-CoV-2, RNA, NAAT Blood Type Cancelled Antibody Screen Cancelled 12/27/20 12/27/20 12/27/20 18:19 18:40 19:06 WBC RBC Hgb Hct MCV MCH MCHC RDW Std Deviation RDW Coeff of Zeus Plt Count MPV Immature Gran % (Auto) Neut % (Auto) Lymph % (Auto) Winn % (Auto) Eos % (Auto) Baso % (Auto) Neut # (Auto) Lymph # (Auto) Winn # (Auto) Eos # (Auto) Baso # (Auto) Immature Gran # (Auto) PT INR APTT PTT Ratio Sodium 138 Potassium 4.5 Chloride 106 Carbon Dioxide 30 Anion Gap 2.0 L BUN 22 H Creatinine 1.28 Est Cr Clr Drug Dosing 43.4 Est GFR ( Amer) 63.0 Est GFR (Non-Af Amer) 54.4 BUN/Creatinine Ratio 17.5 Glucose 97 Estimat Average Glucose Hemoglobin A1c Calcium 9.2 Phosphorus Magnesium 2.5 H Total Bilirubin 0.4 AST 20 ALT 30 Alkaline Phosphatase 59 Troponin I < 0.015 Total Protein 8.2 Albumin 3.9 Globulin 4.3 H Albumin/Globulin Ratio 0.9 Triglycerides Cholesterol LDL Cholesterol, Calc VLDL Cholesterol, Calc HDL Cholesterol Cholesterol/HDL Ratio Urine Color Yellow Urine Appearance Clear Urine pH 6.5 Ur Specific [place] 1.013 Urine Protein Negative Urine Glucose (UA) Negative Urine Ketones Negative Urine Blood Negative Urine Nitrite Negative Urine Bilirubin Negative Urine Urobilinogen Negative Ur Leukocyte Esterase Negative COVID-19 Eval Order Hepatitis C Ab Screen SARS-CoV-2, RNA, NAAT Blood Type Antibody Screen 12/27/20 12/27/20 12/27/20 19:06 19:08 19:08 WBC RBC Hgb Hct MCV MCH MCHC RDW Std Deviation RDW Coeff of Zeus Plt Count MPV Immature Gran % (Auto) Neut % (Auto) Lymph % (Auto) Winn % (Auto) Eos % (Auto) Baso % (Auto) Neut # (Auto) Lymph # (Auto) Winn # (Auto) Eos # (Auto) Baso # (Auto) Immature Gran # (Auto) PT INR APTT PTT Ratio Sodium Potassium Chloride Carbon Dioxide Anion Gap BUN Creatinine Est Cr Clr Drug Dosing Est GFR ( Amer) Est GFR (Non-Af Amer) BUN/Creatinine Ratio Glucose Estimat Average Glucose Hemoglobin A1c Calcium Phosphorus Magnesium Total Bilirubin AST ALT Alkaline Phosphatase Troponin I Total Protein Albumin Globulin Albumin/Globulin Ratio Triglycerides Cholesterol LDL Cholesterol, Calc VLDL Cholesterol, Calc HDL Cholesterol Cholesterol/HDL Ratio Urine Color Urine Appearance Urine pH Ur Specific [place] Urine Protein Urine Glucose (UA) Urine Ketones Urine Blood Urine Nitrite Urine Bilirubin Urine Urobilinogen Ur Leukocyte Esterase COVID-19 Eval [facility] Hepatitis C Ab Screen SARS-CoV-2, RNA, NAAT NEGATIVE Blood Type A Positive Antibody Screen NEGATIVE 12/28/20 12/28/20 12/28/20 05:57 05:57 05:57 WBC 5.13 RBC 4.77 Hgb 14.7 Hct 42.7 MCV 89.5 MCH 30.8 MCHC 34.4 RDW Std Deviation 42.9 RDW Coeff of Zeus 13.1 Plt Count 197 MPV 11.1 H Immature Gran % (Auto) 0.0 Neut % (Auto) 51.6 Lymph % (Auto) 31.6 Winn % (Auto) 12.3 Eos % (Auto) 4.3 Baso % (Auto) 0.2 Neut # (Auto) 2.65 Lymph # (Auto) 1.62 Winn # (Auto) 0.63 H Eos # (Auto) 0.22 Baso # (Auto) 0.01 Immature Gran # (Auto) 0.00 PT INR APTT PTT Ratio Sodium 139 Potassium 3.6 D Chloride 107 Carbon Dioxide 26 Anion Gap 6.0 BUN 18 Creatinine 1.04 Est Cr Clr Drug Dosing 53.3 Est GFR ( Amer) 81.0 Est GFR (Non-Af Amer) 69.9 BUN/Creatinine Ratio 17.3 Glucose 100 H Estimat Average Glucose 111 Hemoglobin A1c 5.5 Calcium 8.9 Phosphorus 3.4 Magnesium Total Bilirubin AST ALT Alkaline Phosphatase Troponin I < 0.015 Total Protein Albumin 3.4 Globulin Albumin/Globulin Ratio Triglycerides 85 Cholesterol 201 H LDL Cholesterol, Calc 130 VLDL Cholesterol, Calc 17 HDL Cholesterol 54 Cholesterol/HDL Ratio 4 Urine Color Urine Appearance Urine pH Ur Specific [place] Urine Protein Urine Glucose (UA) Urine Ketones Urine Blood Urine Nitrite Urine Bilirubin Urine Urobilinogen Ur Leukocyte Esterase COVID-19 Eval Order Hepatitis C Ab Screen SARS-CoV-2, RNA, NAAT Blood Type Antibody Screen 12/28/20 12/28/20 05:57 12:30 WBC RBC Hgb Hct MCV MCH MCHC RDW Std Deviation RDW Coeff of Zeus Plt Count MPV Immature Gran % (Auto) Neut % (Auto) Lymph % (Auto) Winn % (Auto) Eos % (Auto) Baso % (Auto) Neut # (Auto) Lymph # (Auto) Winn # (Auto) Eos # (Auto) Baso # (Auto) Immature Gran # (Auto) PT INR APTT PTT Ratio Sodium Potassium Chloride Carbon Dioxide Anion Gap BUN Creatinine Est Cr Clr Drug Dosing Est GFR ( Amer) Est GFR (Non-Af Amer) BUN/Creatinine Ratio Glucose Estimat Average Glucose Hemoglobin A1c Calcium Phosphorus Magnesium Total Bilirubin AST ALT Alkaline Phosphatase Troponin I < 0.015 Total Protein Albumin Globulin Albumin/Globulin Ratio Triglycerides Cholesterol LDL Cholesterol, Calc VLDL Cholesterol, Calc HDL Cholesterol Cholesterol/HDL Ratio Urine Color Urine Appearance Urine pH Ur Specific [place] Urine Protein Urine Glucose (UA) Urine Ketones Urine Blood Urine Nitrite Urine Bilirubin Urine Urobilinogen Ur Leukocyte Esterase COVID-19 Eval Order Hepatitis C Ab Screen Neg SARS-CoV-2, RNA, NAAT Blood Type Antibody Screen PG Care Time/CCT Total # of Minutes Spent Total Time Spent with Patient: Total time spent is greater than 50% in co ordination of care (as documented) at patient's floor/unit and/or counseling patient: Coding Level of Care Code 63539 Subseq Hosp Care Lvl 3 Diagnoses TIA (transient ischemic attack) G45.9 Stroke-like symptoms R29.90 Carotid stenosis, bilateral I65.23 Stenosis of right vertebral artery I65.01 Atrial fibrillation I48.91 Hypertension I10 Anticoagulated Z79.01 Hypercholesterolemia E78.00 BPH w urinary obs/LUTS N40.1; N13.8
[2020-12-28] MEDS: SODIUM CHLORIDE 0.9% 1000ML 1,000 ML IV SCH (19:59)
[2020-12-28] MEDS ORDERED: TAMSULOSIN HCL 0.4 MG CAP PO SCH (21:00)
[2020-12-28] MEDS: METOPROLOL TARTRATE 25 MG TAB PO SCH (23:49)
[2020-12-29] MEDS: METOPROLOL TARTRATE 25 MG TAB PO SCH ×3 (05:10→17:48)
[2020-12-29 07:30] LABS: Basophils # (auto) 0.02 K/uL (0-0.2); Basophils % (auto) 0.4 %; Eosinophils % (auto) 3.8 %; Hematocrit (blood only) 44.2 % (42-52); Hemoglobin 15.4 g/dL (14.0-18.0); Lymphocytes # (auto) 2.07 K/uL (1.2-3.4); Lymphocytes % (auto) 39.5 %; Mean Corpuscular Hgb Conc 34.8 g/dL (32-36); Mean Corpuscular Volume 89.1 fL (80-100); Mean Platelet Volume 11.3 fL (7.4-10.4); Monocytes # (auto) 0.57 K/uL (0.11-0.59); Monocytes % (auto) 10.9 %; Neutrophils # (auto) 2.38 K/uL (1.4-6.5); Neutrophils % (auto) 45.4 %; Platelet Count 235 K/uL (130-400); RDW Coefficient of Variation 13.2 % (11.5-14.5); RDW Standard Deviation 43.2 fL (36.4-46.3); Red Blood Count 4.96 M/uL (4.7-6.1); White Blood Count 5.24 K/uL (4.8-10.8)
[2020-12-29 08:07] LABS: Albumin Level 3.4 gm/dl (3.4-5.0); BUN Creatinine Ratio 16.6 (10-20); Blood Urea Nitrogen 19 mg/dl (7-18); Calcium 9.2 mg/dl (8.5-10.1); Carbon Dioxide 29 mmol/L (21-32); Chloride 107 mmol/L (98-107); Est GFR (African American) 72.5; Est GFR (Non-African American) 62.6; Glucose 81 mg/dl (70-99); Potassium 4.2 mmol/L (3.5-5.1); Sodium 140 mmol/L (136-145)
[2020-12-29 08:08] LABS: Phosphorus 3.1 mg/dl (2.5-4.9); Troponin I < 0.015 ng/ml (0-0.045)
[2020-12-29] MEDS: RIVAROXABAN 20 MG TAB PO SCH (08:42)
[2020-12-29] MEDS: ATORVASTATIN 40 MG TAB PO SCH (08:42)
[2020-12-29] MEDS ORDERED: CLOPIDOGREL BISULFATE 75 MG TAB PO SCH (09:00)
--- NOTE | 2020-12-29 12:14 | Electrocardiogram Report ---
Test Reason : Blood Pressure : / mmHG Vent. Rate : 083 BPM Atrial Rate : 468 BPM P-R Int : 000 ms QRS Dur : 090 ms QT Int : 366 ms P-R-T Axes : 000 049 034 degrees QTc Int : 430 ms Atrial fibrillation Abnormal ECG When compared with ECG of 28-DEC-2020 06:58, No significant change was found Confirmed by Rashel Carson ([id number]) on 12/29/2020 12:14:15 PM Referred By: REFERRED SELF Confirmed By:Rashel Carson
[2020-12-29] MEDS ORDERED: STROKE PATIENT DISCHARGE STA (17:00)
--- NOTE | 2020-12-29 17:21 | Discharge Summary ---
Date of Service date of admission - December 27, 2020 date of discharge - December 29, 2020 Admission HPI Per Admitting Provider The patient is a 75-year-old male with a past medical history including atrial fibrillation, chronic anticoagulation, hypertension and hypercholesterolemia. He presented to the emergency department yesterday for further evaluation of strokelike symptoms characterized by difficulty writing on a holiday card. His writing was gibberish and he could not complete the task. He had a mild associated headache as well. Symptoms started around 2 PM and had resolved by the time he was assessed in the emergency department. He had no previous occurrence of the symptoms. He denies any recent travels or sick exposures. He does report having to get up to urinate every 2 hours overnight, and has had disrupted sleep for several months. Principal Diagnosis 1. TIA 2. Rapid a.fib Discharge Exam Constitutional no acute distress and no altered mental status ENMT external ear and nose normal, oropharynx normal Respiratory normal respiratory effort, lungs clear to auscultation Cardiovascular Rate/Rhythm: regular rate and + irregularly irregular Heart Sounds: normal S1 and normal S2; no murmur Vessels: posterior tibial pulses present and dorsalis pedis pulses present; no JVD Extremities: no edema Gastrointestinal (Abdomen) normal bowel sounds, soft, nontender, no hepatosplenomegaly Neurologic deep tendon reflexes 2+ bilaterally and moves all extremities; no focal motor deficits Psychiatric Orientation: alert and oriented x 3 (Confusion much better) Discharge Data Allergies Allergy/AdvReac Type Severity Reaction Status Date / Time pollen extracts Allergy Mild SNEEZING, Verified 12/27/20 18:44 CONGESTION Consultations [facility] [place] [place], OT, Speech Therapy Ordered Studies 12/27/20 18:06 CT angio head w con Stat CT angio neck with con Stat IMPRESSION: 1. Atheromatous plaque of the left greater than right carotid bulbs and proximal internal carotid arteries results in less than 50% stenosis bilaterally. 2. 70% stenosis at the origin of the right vertebral artery secondary to atheromatous plaque. 3. Otherwise unremarkable CTA of the head and neck. CT head/brain wo con Stat - no acute intracranial abnormality. 12/28/20 00:34 MR brain wo con Routine FINDINGS: There is no mass, hematoma, midline shift, or acute infarct. The paranasal sinuses are clear. The mastoid air cells are clear. The ventricles and sulci demonstrate mild age-related involutional changes. Scattered foci of T2 hyperintensity seen within the periventricular and subcortical white matter are nonspecific but suggestive of mild microvascular ischemic changes. The major vascular flow voids at the skull base are well-maintained. 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 IMPRESSION: No acute intracranial abnormality. Scattered foci of T2 hyperintensity seen within the periventricular and subcortical white matter are nonspecific but favor microvascular ischemic change. Echocardiogram: * EF 55-60% * no shunt across the atria * no significant valvular disease Hospital Course (1) Atrial fibrillation with rapid ventricular response: During the stay the patient was noted to have rapid, uncontrolled a.fib. He was on a tiny dose of 12.5mg of metoprolol succinate only at time of admission. His metoprolol was titrated and ultimately a dose of 50mg BID of metoprolol tartrate controlled his rates. He was continued on xarelto 20mg daily for anticoagulation. Suspect that the a.fib (vs carotid disease) was the cause of his TIA. Based on records it appears that his a.fib is permanent as most EKGs and at most office visits he is in a.fib. (2) TIA (transient ischemic attack): MRI brain neg for acute stroke. Symptoms localized to the left cerebral hemisphere. In light of TIA while on asa/xarelto Dr Osorio recommended we switch asa to plavix; leave xarelto the same. No deficits on exam at time of discharge. He had had mild confusion but this improved while hospitalized. Recommended f/u with [facility] post-discharge. (3) Stroke-like symptoms: TIA. See above. PT, OT, speech and neuro consults performed. Inpatient rehab not advised. Plavix was recommended in jocelin of asa. Cont xarelto. Plavix/xarelto are for secondary prophylaxis. Cont lipitor 40mg daily. Patient will take PPI for GI prophylaxis given his concomitant plavix/xarelto use. (4) Carotid stenosis, bilateral: <50% each side. No surgical intervention needed. Statin started. Plavix. 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 NOT the cause of presenting TIA, but bears future surveillance. Statin. Plavix. (6) Hypertension: continue beta ar controlled (7) Anticoagulated: xarelto for chronic a.fib (8) Hypercholesterolemia: LDL 130 start lipitor 40mg daily (9) BPH w urinary obs/LUTS: Bps were low and we needed more room for a.fib rate control Thus, flomax was held Consider finasteride in jocelin as an outpatient (10) Metabolic encephalopathy: Patient had noticeable confusion at time of presentation -- suspect 2nd to TIA. With time these symptoms improved and he returned close to his baseline per his . He did not have any infectious process to explain the confusion. Total Time Total Time Spent Total Time Spent (In Minutes): 45 Total Time Includes: Examination of the Patient, Discharge Planning, Medication Reconciliation and Communication With Other Providers Discharge Plan Discharge Items Patient Disposition: Home - Self-Care Reason For Visit: STROKE SYMPTOMS Discharge Diagnosis: TIA (Transient Ischemic Attack) -- please see handout Activity: As commented below Activity Comment: gradually increase your activities over the next 5 days Driving/Machine Use: Resume 3 days after discharge Non-emergency contact: Primary Care Provider Call non-emergency contact if: you have any medication questions and your symptoms worsen Follow-up/Referrals: Rashel Carson MD [Physician] - (see Dr Carson in 1-2 weeks for your a.fib ) Albert Osorio MD [Physician] - (see Dr Osorio within 1 month ) Rashel Cueto MD [Primary Care Provider] - (see Dr Cueto within 1 week ) Diet: Heart Healthy Addtl Attending Provider Instructions: Mr Calvin, You were admitted to the hospital for concern of a stroke. Fortunately your symptoms got better/resolved and your MRI did NOT show a stroke. You were seen by [facility], Dr Osorio, and he felt that you had suffered a "TIA" event. TIA stands for "transient ischemic attack." In other words, you had a set of neurological symptoms that came on but ultimately resolved. The TIA handout describes this as a "mini-stroke" but a TIA is really not a stroke. Strokes typically cause lasting damage and deficits whereas a TIA leads to no lasting problems (the symptoms resolve). A TIA is indeed a big risk factor for a future stroke. To reduce your chances of having another TIA or stroke please do the following - 1. take clopidogrel 75mg once daily. This takes the place of your aspirin. 2. take atorvastatin 40mg once daily for your cholesterol. This will help prevent plaque build-up/cholesterol in your arteries. 3. keep taking your xarelto blood thinner. Additionally, please do the following - * take pantoprazole 40mg once daily every morning. This is an acid lab associate so you don't get a stomach ulcer from the clopidogrel and xarelto. * take metoprolol tartrate 50mg twice a day. This is for your a.fib. STOP your old metoprolol succinate 12.5mg daily. * speak to Dr Cueto about medication for your prostate. Finasteride may be a good choice for you as it doesn't affect your blood pressure. * STOP the following -- naproxen and saw palmetto. Follow-up - see separate section. Return to [facility] if - * you are having any symptoms of TIA or stroke (slurred speech, difficulty speaking, difficulty swallowing, difficulty walking due to balance issues or weakness, arm weakness, etc) * you are having worsening shortness of breath * you have concerns about bleeding (blood or black in stools, etc) * any other concerns Take good care! I enjoyed caring for you, -Dr Aniket Coronado [employer] Inspector Provider Instructions: Risk Factors for Stroke and TIA: You can reduce your chances of stroke by working with your medical provider to adopt a healthy lifestyle. Some specific ways to lower your chance of stroke are: * If you are a smoker, now is the time to stop smoking cigarettes * If you are diabetic, improve the control of your blood sugars * Avoid excessive amounts of alcohol * Control high blood pressure * Lose weight if you are overweight * Be sure to lead an active lifestyle * Eat a healthy diet low in salt, cholesterol and fat You should know about other risk factors for stroke that you are unable to control. These include: * Age 55 years or older * Male gender * Certain racial groups: , or / * Family History of Stroke, Mini stroke or Heart Attack * Sickle Cell Disease Who to Call and When: Medical Emergencies: Call 911 immediately if you experience any of the following warning signs and symptoms of Stroke: * Sudden numbness or weakness of the face, arm or leg, especially on one side of the body * Sudden confusion, trouble speaking or understanding * Sudden trouble seeing in one or both eyes * Sudden trouble walking, dizziness, loss of balance or coordination * Sudden severe headache with no cause Do not delay calling 911 if you experience any warning signs or symptoms of a stroke. Delay in seeking medical attention may affect what treatments can be given to you. . Pending Studies at Discharge: No Stand-Alone Forms: Medications to Prevent Stroke, [facility], Smoking Cessation Medications and DC Order Prescriptions: New atorvastatin 40 mg Tablet 40 mg PO QAM Qty: 30 RF: 5 clopidogrel 75 mg Tablet 75 mg PO QAM Qty: 30 RF: 5 metoprolol tartrate 50 mg tablet 50 mg PO BID Qty: 60 RF: 5 pantoprazole [Protonix] 40 mg tablet,delayed release (DR/EC) 40 mg PO QAM Qty: 30 RF: 5 Continued Xarelto 20 mg tablet 20 mg PO QAM RF: 0 Lactobacillus acidophilus Capsule 0 mg PO DAILY RF: 0 psyllium husk 6 gram Powder In Packet 6 g PO QAM RF: 0 Discontinued aspirin 81 mg tablet,delayed release (DR/EC) 81 mg PO QAM RF: 0 metoprolol succinate 25 mg tablet extended release 24 hr 12.5 mg PO QAM Qty: 45 RF: 3 naproxen 500 mg tablet 500 mg PO QAM RF: 0 saw palmetto 80 mg Capsule 0 mg PO DAILY RF: 0 Discharge Orders: Discharge Order (Routine); Ordered 12/29/20 Ordered By: Allan Miller/Other Patient Handouts: Using Blood Thinners (Anticoagulants), TIA Dc, ED TIA: Transient Ischemic Attack Admission Data Admit Date/Time: 12/28/20 17:54 Attending Provider: Allan Marcial Admit Provider: Samy Ovalle Primary Care Provider: Rashel Cueto Other Providers: Samy Ovalle ; Albert Osorio Other Interventions: Discharge Summary Assessment (RN) Last Done: 12/29/20 17:12 Coding Level of Care Code D/C Day Management >30 mins Diagnoses Atrial fibrillation with rapid ventricular response I48.91 TIA (transient ischemic attack) G45.9 Stroke-like symptoms R29.90 Carotid stenosis, bilateral I65.23 Stenosis of right vertebral artery I65.01 Hypertension I10 Anticoagulated Z79.01 Hypercholesterolemia E78.00 BPH w urinary obs/LUTS N40.1; N13.8 Metabolic encephalopathy G93.41
--- NOTE | 2020-12-29 17:32 | Pharmacy Report ---
Pharmacist Stroke Counseling - Date of Service December 29, 2020 - Scope: Pharmacy has been consulted to provide medication discharge counseling for this patient admitted with [ischemic stroke] [hemorrhagic stroke] [transient ischemic attack] as per the Pharmacist Discharge Counseling for Stroke Patients Protoc . - Medications on Discharge: Home Medications Medication Instructions Recorded Confirmed Lactobacillus acidophilus 0 mg PO DAILY 05/17/20 12/27/20 Xarelto 20 mg PO QAM 05/17/20 12/27/20 psyllium husk 6 g PO QAM 05/17/20 12/27/20 New Rx's Medication Instructions Recorded atorvastatin 40 mg PO QAM #30 tab 12/29/20 clopidogrel 75 mg PO QAM #30 tab 12/29/20 metoprolol tartrate 50 mg PO BID #60 tab 12/29/20 pantoprazole [Protonix] 40 mg PO QAM #30 tab 12/29/20 - Action: The above medications, specifically ones for stroke treatment/prophylaxis, have been reviewed in detail with the patient prior to discharge. This includes indication, common adverse reactions, drug interactions, and medication administration. Medication counseling has been employed using the teach-back method to ensure understanding. - Outcome: The patient has demonstrated understanding of the medications. Additional comments: -no pertinent positives Thank you for allowing pharmacy to be involved in the care of this patient. Please call [phone] with any additional questions
== END 2020-12-29 18:20 | disposition home or self-care (01) ==
LOC: 2N 17:54 → ED 17:54 → SUATTDRO 22:11 → 2N 22:42